=== PATIENT | male | born 1970 | race Caucasian/White ===

== ENCOUNTER 2022-09-18 11:32 | Emergency (ER) | payer BC, SELFPAY ==
--- NOTE | 2022-09-18 11:34 | ED.URI ---
HPI - URI/Sore Throat General Chief Complaint: Upper Respiratory Infection Stated Complaint: Sinus Time Seen by Provider: 09/18/22 11:49 Source: patient, RN notes reviewed and old records reviewed Mode of arrival: ambulatory Limitations: no limitations History of Present Illness HPI Narrative: 52-year-old male presents to the [facility] with complaints of sinus congestion since yesterday. Has taken Tylenol and DayQuil. Was concerned because he was exposed to strep last week. MD elicited complaint: nasal congestion Related Data Home Medications Medication Instructions Recorded Confirmed amlodipine 10 mg tablet mg 09/18/22 lisinopril 40 mg tablet mg 09/18/22 metformin 500 mg tablet mg 09/18/22 pravastatin 20 mg tablet mg 09/18/22 semaglutide 0.25 mg or 0.5 mg (2 mg subcut 09/18/22 mg/1.5 mL) subcutaneous pen injector (Ozempic) sertraline 50 mg tablet mg 09/18/22 Allergies Allergy/AdvReac Type Severity Reaction Status Date / Time No Known Allergies Allergy Verified 09/18/22 11:54 Review of Systems Review of Systems: All systems reviewed & are unremarkable except as noted in HPI and below Constitutional: Constitutional: Reports no additional constitutional complaints Eyes: Eyes: Reports no additional eye complaints ENT: Reports as per HPI, Reports nasal congestion and Denies sore throat Cardiovascular: Cardiovascular: Reports no additional cardiovascular complaints, Denies chest pain and Denies dyspnea Respiratory: Respiratory: Reports no additional respiratory complaints, Denies chest congestion, Denies cough and Denies dyspnea Gastrointestinal: Gastrointestinal: Reports no additional gastrointestinal complaints, Denies abdominal pain, Denies nausea and Denies vomiting Musculoskeletal: Musculoskeletal: Reports no additional musculoskeletal complaints Integumentary/Breasts: Skin/Breast: Reports system reviewed and no additional complaints, except as docu Neurologic: Reports system reviewed and no additional complaints, except as documented Psychiatric: Psychiatric: Reports no additional psychiatric complaints Allergic/Immunologic: Allergic/Immunologic: Reports no additional allergic/immunologic complaints PMFSH Comments At the time of my signature, I reviewed and agree with the nursing past medical, surgical, social, and family history. There is no relevant family history pertinent to the patient complaint. Exam Const: General: cooperative, healthy appearing, comfortable, no acute distress, well developed, alert and well nourished Nutritional Appearance: well nourished and obese Orientation/consciousness: patient oriented x3 Limitations: no limitations HENMT: Head: normal to inspection Ears: hearing grossly normal bilaterally and external ears normal Face/Nose/Sinus: Normal external nose present, Normal nares present, Normal nasal mucous membranes and turbinates present and normal facial exam Face and sinus: normal facial exam Mouth: Yes Normal oral and palatal mucosa present, Yes lip normal and Yes moist mucous membranes Throat: posterior oropharynx normal and uvula midline Eyes: General: appearance normal, both eyes and all related structures Alignment and Position: alignment normal Periorbital: periorbital findings normal Conjunctivae: conjunctivae normal Pupils: Equal, round and reactive pupils present EOM: EOMs intact bilaterally Neck: Neck: normal visual inspection, full ROM, no lymphadenopathy and no meningeal signs Chest: Chest palpation & inspection: normal inspection of the chest Resp: Effort & Inspection: normal respiratory effort and able to speak in complete sentences Auscultation: clear to auscultation bilaterally, no crackles, no rales, no rhonchi and no wheezes Cardio: Rate: regular rate Rhythm: regular rhythm Back/Spine/Pelvis: Cervical Spine: cervical ROM normal Thoracic/Lumbar Spine: No thoracic spinal tenderness Skin: General skin exam: normal color and no ra
[2022-09-18 11:46] VITALS: BP 179/81; PULSE 72; RESP 16; TEMP 36.1; O2SAT 99
== END 2022-09-18 12:22 | disposition home or self-care (01) ==
PROVIDERS: Emergency Provider Nurse Practitioner
DX: J06.9 Acute upper respiratory infection, unspecified (principal); E78.00 Pure hypercholesterolemia, unspecified; I10 Essential (primary) hypertension; E11.9 Type 2 diabetes mellitus without complications
CPT/HCPCS: 87081; 87880; 99203; G0463

== ENCOUNTER 2022-10-23 11:30 | Emergency (ER) | payer BC, SELFPAY ==
[2022-10-23 11:40] VITALS: BP 180/70; PULSE 73; RESP 20; TEMP 36.9; O2SAT 99
--- NOTE | 2022-10-23 12:09 | ED.URI ---
HPI - URI/Sore Throat General Chief Complaint: Upper Respiratory Infection Stated Complaint: Cough Time Seen by Provider: 10/23/22 12:09 Source: patient Mode of arrival: ambulatory Limitations: no limitations History of Present Illness HPI Narrative: Patient is a 52-year-old male that presents from with a guide for cough, congestion, runny nose, intermittent fever since the hairs September. Patient was seen here September 18 and was determined to have a virus at the time. The patient states symptoms have not improved. Took Tylenol today for fever. Related Data Home Medications Medication Instructions Recorded Confirmed amlodipine 10 mg tablet 10 mg PO DAILY 09/18/22 10/23/22 lisinopril 40 mg tablet 40 mg PO DAILY 09/18/22 10/23/22 metformin 500 mg tablet 500 mg PO DAILY 09/18/22 10/23/22 pravastatin 20 mg tablet 20 mg PO DAILY 09/18/22 10/23/22 semaglutide 0.25 mg or 0.5 mg (2 0.25 mg subcut WEEKLY 09/18/22 10/23/22 mg/1.5 mL) subcutaneous pen injector (Ozempic) sertraline 50 mg tablet 50 mg PO DAILY 09/18/22 10/23/22 Allergies Allergy/AdvReac Type Severity Reaction Status Date / Time No Known Allergies Allergy Verified 10/23/22 11:37 Review of Systems Review of Systems: All systems reviewed & are unremarkable except as noted in HPI and below Constitutional: Constitutional: Denies body ache(s), Reports fever(s), Denies malaise and Denies weakness Eyes: Eyes: Denies loss of vision ENT: Denies otalgia, Denies headache(s), Reports nasal congestion, Reports nasal discharge, Denies sinus pain and Denies sore throat Cardiovascular: Cardiovascular: Denies chest pain, Denies irregular heart rhythm and Denies dyspnea Respiratory: Respiratory: Reports cough and Denies dyspnea Gastrointestinal: Gastrointestinal: Denies abdominal pain, Denies melena, Denies hematochezia, Denies diarrhea, Denies nausea and Denies vomiting Musculoskeletal: Musculoskeletal: Denies back pain, Denies myalgias and Denies arthralgias Integumentary/Breasts: Skin/Breast: Denies pruritus and Denies rash Neurologic: Denies headache(s), Denies loss of vision and Denies weakness Psychiatric: Psychiatric: Reports no additional psychiatric complaints PMFSH Comments At time of signature, agree with nursing past medical, surgical, social and family history. There is no relevant family history pertinent to the presenting complaint. Exam Const: General: cooperative, healthy appearing, comfortable, no acute distress and well nourished Nutritional Appearance: well nourished Orientation/consciousness: patient oriented x3 Limitations: no limitations HENMT: Head: normal to inspection, normocephalic and atraumatic Ears: hearing grossly normal bilaterally, external ears normal and TM's normal bilaterally Face/Nose/Sinus: Normal external nose present, Normal nares present, Normal nasal mucous membranes and turbinates present, normal facial exam, sinuses nontender and face symmetric Face and sinus: normal facial exam, sinuses nontender and face symmetric Mouth: Yes Normal oral and palatal mucosa present, Yes lip normal and Yes moist mucous membranes Teeth and gingiva: dentition normal Throat: posterior oropharynx normal, tonsils normal and uvula midline Eyes: General: appearance normal, both eyes and all related structures Alignment and Position: alignment normal and position normal Periorbital: periorbital findings normal Eyelids: eyelids normal Pupils: Equal, round and reactive pupils present Neck: Neck: normal visual inspection, full ROM and supple Chest: Chest palpation & inspection: normal inspection of the chest and normal palpation of entire chest wall Resp: Effort & Inspection: normal respiratory effort and able to speak in complete sentences Auscultation: clear to auscultation bilaterally, no crackles, no rales, no rhonchi and no wheezes Cardio: Rate: regular rate Rhythm: regular rhythm Heart sounds: S1 normal heart sound present an
== END 2022-10-23 12:27 | disposition home or self-care (01) ==
PROVIDERS: Emergency Provider Nurse Practitioner Family
DX: J06.9 Acute upper respiratory infection, unspecified (principal)
CPT/HCPCS: 99213; G0463

== ENCOUNTER 2022-12-31 08:33 | Emergency (ER) | payer BC, SELFPAY ==
--- NOTE | ~2022-12-31 | CT_ITS ---
EXAMINATION: CT pelvis w con DATE: 12/31/2022 10:08 INDICATION: Left scrotal abscess. TECHNIQUE: Computed tomography (CT) of the pelvis was performed with 100 mL Omnipaque 350 intravenous contrast. Automated exposure control and iterative reconstruction technique were employed. The dose- length product was 1024.63 mGy-cm. COMPARISON: None FINDINGS: There are no dilated loops of bowel. There are no pathologically enlarged lymph nodes. Ther e is no free intraperitoneal fluid. There is a 2.6 x 1.3 x 2.0 cm abscess in the scrotum on the left. The abscess drains to the skin, and there is a focus of gas in the abscess. There is moderate lumbar spondylosis. IMPRESSION: 1. 2.6 x 1.3 x 2.0 cm abscess in the scrotum on the left. Reviewed, dictated and finalized at location A.
[2022-12-31 08:38] VITALS: BP 221/96; PULSE 79; RESP 20; TEMP 36.8; O2SAT 99
--- NOTE | 2022-12-31 09:04 | ED.GENADULT ---
HPI - General Adult General Chief complaint: Wound/Laceration Stated complaint: cyst in groin Time Seen by Provider: 12/31/22 08:56 Source: patient Mode of arrival: ambulatory Limitations: no limitations History of Present Illness HPI narrative: 52 years old white male drove himself to the emergency room complaining of left scrotal cyst started 3 days ago. Patient is telling me that he had numerous symptoms in the past sometimes get better on Bactrim DS and sometimes require surgery. Last time went to [facility], work-up showed necrotizing fasciitis and required surgery at [facility]. Patient denies any fever, chills, nausea, vomiting, abdominal pain or scrotal pain. Patient is diabetic. Dr. Medina came to the emergency room and manage the abscess. Patient will be discharged on clindamycin and to follow-up with his office in 7 days. Related Data Home Medications Medication Instructions Recorded Confirmed amlodipine 10 mg tablet 10 mg PO DAILY 09/18/22 10/23/22 lisinopril 40 mg tablet 40 mg PO DAILY 09/18/22 10/23/22 metformin 500 mg tablet 500 mg PO DAILY 09/18/22 10/23/22 pravastatin 20 mg tablet 20 mg PO DAILY 09/18/22 10/23/22 semaglutide 0.25 mg or 0.5 mg (2 0.25 mg subcut WEEKLY 09/18/22 10/23/22 mg/1.5 mL) subcutaneous pen injector (Ozempic) sertraline 50 mg tablet 50 mg PO DAILY 09/18/22 10/23/22 Allergies Allergy/AdvReac Type Severity Reaction Status Date / Time No Known Allergies Allergy Verified 12/31/22 08:47 Review of Systems Review of Systems: All systems reviewed & are unremarkable except as noted in HPI and below Exam Narrative: General appearance: Well-developed, well-nourished Skin: Normal color Head: Normocephalic, nontraumatic Eyes: Clear conjunctiva ENT: Oropharynx normal, ears normal, nose normal Neck: Supple, nontender Chest and respiratory: Airway patent, no respiratory distress, no accessory muscle use Heart: Regular rate/rhythm Abdomen: Soft, nontender, no organomegaly, quiet bowel sounds Vascular: Normal peripheral pulses, normal capillary refill. Musculoskeletal: Normal range of motion, nontender back Neurologic: Alert and oriented ?3, [employer] is normal as tested, no gross motor deficit : Male genitals images: 1. 5 cm x 5 cm subcutaneous induration with a hole in the middle leaking thick purulent discharge Course Consultations Consultation #1: Dr. Medina Came to the emergency room and manage the abscess. Date: 12/31/22 Time: 12:55 Vital Signs Vital signs: Vital Signs Temperature 36.8 C 12/31/22 08:38 Pulse Rate 79 12/31/22 08:38 Respiratory Rate 20 12/31/22 08:38 Blood Pressure 221/96 H 12/31/22 08:38 Pulse Oximetry 99 12/31/22 08:38 Oxygen Delivery Room Air 12/31/22 08:38 Temperature 36.8 C 12/31/22 08:38 Pulse Rate 92 12/31/22 10:58 Respiratory Rate 19 12/31/22 10:58 Blood Pressure 174/73 H 12/31/22 10:58 Pulse Oximetry 99 12/31/22 10:58 Oxygen Delivery Room Air 12/31/22 08:38 Medical Decision Making Vital Signs Vital Signs: Vital Signs Temperature 36.8 C 12/31/22 08:38 Pulse Rate 79 12/31/22 08:38 Respiratory Rate 20 12/31/22 08:38 Blood Pressure 221/96 H 12/31/22 08:38 Pulse Oximetry 99 12/31/22 08:38 Oxygen Delivery Room Air 12/31/22 08:38 Temperature 36.8 C 12/31/22 08:38 Pulse Rate 92 12/31/22 10:58 Respiratory Rate 19 12/31/22 10:58 Blood Pressure 174/73 H 12/31/22 10:58 Pulse Oximetry 99 12/31/22 10:58 Oxygen Delivery Room Air 12/31/22 08:38 Lab Data 12/31/22 09:17 12/31/22 09:17 Labs: Lab Results 12/31/22 12/31/22 Rang
[2022-12-31] MEDS: SODIUM CHLORIDE 0.9% IV 1,000 ML 999 ML IV CONT (09:25)
[2022-12-31 09:32] LABS: Basophils Percent Auto 0.4 % (0.2-1.2); Eosinophils Absolute Auto 0.1 K/mm3 (0-0.3); Hematocrit 42.9 % (42.0-52.0); Hemoglobin 14.5 g/dL (14.0-18.0); Immature Granulocyte Absolute 0.05 K/mm3 (0.00-0.031); Immature Granulocyte Percent A 0.7 % (0-0.5); Lymphocytes Absolute Auto 1.04 K/mm3 (0.9-3.2); Lymphocytes Percent Auto 14.6 % (18.3-44.2); Mean Corpuscular HGB Conc 33.8 g/dl (32-36); Mean Corpuscular Hemoglobin 32.5 pg (26-34); Mean Corpuscular Volume 96.2 fl (80-100); Mean Platelet Volume 9.2 fl (7.4-10.4); Monocytes Absolute Auto 0.6 K/mm3 (0.1-0.6); Monocytes Percent Auto 7.9 % (2.6-8.5); Neutrophils Absolute Auto 5.4 K/mm3 (1.3-6.7); Neutrophils Percent Auto 75.4 % (45.5-73.1); Platelet Count Result 265 k/mm3 (150-375); Red Blood Count 4.46 M/mm3 (4.6-6.20); Red Cell Distribution Width 12.6 % (11.5-14.5); White Blood Count 7.1 K/mm3 (4.5-10.0)
[2022-12-31 09:35] LABS: Appearance Urine Clear (Clear); Bacteria Urine None Seen /hpf; Bilirubin Urine Negative (Negative); Blood Urine Negative (Negative); Color Urine Yellow (Yellow); Glucose Urine UA 2+ mg/dL (Negative); Ketones Urine Negative (Negative); Leukocyte Esterase Ur Negative LEU/UL (Negative); Nitrate Urine Negative (Negative); Non Pathogenic Casts 0-2; Protein Urine 1+ mg/dL (Negative); RBC Urine 0-2 /hpf (0-2); Specific Grav Ur 1.014 (1.001-1.035); Squamous Epithelial Cell Urine None seen /hpf (Few); Urobilinogen Urine 0.2 mg/dL (<2.0); WBC Urine 0-5 /hpf; pH Urine 5.5 (5.0-9.0)
[2022-12-31 09:41] LABS: Prothrombin Time 13.8 Seconds (11.1-14.7)
[2022-12-31 09:42] LABS: Partial Thromboplastin Time 26.7 SECONDS (22.3-36.8)
[2022-12-31 09:44] LABS: Add Urine Microscopic? YES
[2022-12-31 09:45] LABS: Lactic Acid Reflex 1.5 mmol/L (0.7-2.0)
[2022-12-31 09:49] LABS: Alanine Aminotransferase 17 U/L (6-50); Albumin Level 4.2 g/dL (3.5-5.1); Alkaline Phosphatase 45 U/L (38-126); Anion Gap 5 mmol/L (8-16); Aspartate Amino Transferase 26 U/L (17-59); Bilirubin,Total 0.8 mg/dL (0.2-1.3); Blood Urea Nitrogen 16 mg/dL (9-20); CRP 1.6 mg/dL (<1.0); Calcium 8.6 mg/dL (8.4-10.2); Carbon Dioxide 30 mmol/L (22-30); Chloride 102 mmol/L (98-107); Estimated CRCL calculation 154 ml/min; Estimated Glomerular Filt Rate > 60; Glucose 258 mg/dL (65-110); Potassium 4.6 mmol/L (3.4-5.0); Sodium 137 mmol/L (137-145)
[2022-12-31 10:58] VITALS: BP 174/73; PULSE 92; RESP 19; O2SAT 99
[2022-12-31] MEDS: VANCOMYCIN 1,250 MG/NS 250 ML 1,250 MG/250 ML BAG 166.67 MG IVPB (11:36)
--- NOTE | 2022-12-31 12:30 | PC.NURSE ---
Dr. Medina at bedside to evaluate pt and I&D abscess.
--- NOTE | 2022-12-31 13:01 | WPDURCON ---
Assessment and Plan Assessment and plan (1) Abscess of scrotum: Code(s): N49.2 - Inflammatory disorders of scrotum Status: Acute Assessment and Plan: Discussed management options. Given that his white count is normal you would like to possibly have it drained in the emergency room. This was performed cultures were sent there was no significant abscess noted just fairly empty pocket. This was packed with iodoform. He will be discharged home with pain meds antibiotics and instructed to what dry b.i.d.. He will follow up with our nurse practitioner in 7-10 days. Procedure note is dictated separately Urology Consult Note HPI Date Seen: 12/31/22 Time Seen: 13:01 Requesting Physician: Dr. Terrazas Primary Care Provider: PHYSICIAN NOT ON STAFF Consult Narrative Reason for consult: scrotal abscess Narrative: Dru Nathan is a 52 year old male who has a history of repeated scrotal abscesses. Approximately 18 months ago he was admitted over at [place] with necrotizing fasciitis. He states that he gets these little abscess is regularly in the usual a just drain on a cells. He was a little bit concerned at this point because of what happened tumor the past and presented to the emergency room. Denied any fevers chills nausea or vomiting. White count is normal and he is afebrile. CT scan was performed which reveals about a 2 cm abscess in the left hemiscrotum which appears superficial. It has been draining. Review of Systems Review of Systems: All systems reviewed & are unremarkable except as noted in HPI and below Meds Home Medications and Allergies Home Medications Medication Instructions Recorded Confirmed Type amlodipine 10 mg tablet 10 mg PO DAILY 09/18/22 10/23/22 History lisinopril 40 mg tablet 40 mg PO DAILY 09/18/22 10/23/22 History metformin 500 mg tablet 500 mg PO DAILY 09/18/22 10/23/22 History pravastatin 20 mg tablet 20 mg PO DAILY 09/18/22 10/23/22 History semaglutide 0.25 mg or 0.5 mg (2 0.25 mg subcut WEEKLY 09/18/22 10/23/22 History mg/1.5 mL) subcutaneous pen injector (Ozempic) sertraline 50 mg tablet 50 mg PO DAILY 09/18/22 10/23/22 History amoxicillin 875 mg-potassium 1 tablet PO Q12H 10 days #20 tabs 10/23/22 Rx clavulanate 125 mg tablet prednisone 20 mg tablet 40 mg PO DAILY 5 days #10 tabs 10/23/22 Rx clindamycin HCl 300 mg capsule 300 mg PO Q6H #40 caps 12/31/22 Rx Allergies Allergy/AdvReac Type Severity Reaction Status Date / Time No Known Allergies Allergy Verified 12/31/22 08:47 Vital Signs Vital Signs - 24 hr 12/31/22 08:38 12/31/22 10:58 Temperature 36.8 C Pulse Rate 79 92 Respiratory Rate 20 19 Blood Pressure 221/96 H 174/73 H Pulse Oximetry 99 99 Oxygen Delivery Room Air Exam Const: General: cooperative, healthy appearing, comfortable and no acute distress Chest: Chest palpation & inspection: normal inspection of the chest Resp: Effort & Inspection: normal respiratory effort Cardio: Rate: regular rate Rhythm: regular rhythm : Penis: Yes normal penis Meatus: meatus normal Scrotum: other ( Fluctuant area left hemiscrotum with induration around it measuring 2-3 c) Testes: Testes normal Results Labs 12/31/22 09:17 12/31/22 09:17 Labs: Short CBC 12/31/22 Range/Units 09:17 WBC 7.1 (4.5-10.0) K/mm3 Hgb 14.5 (14.0-18.0) g/dL Hct 42.9 (42.0-52.0) % Plt Count 265 (150-375) k/mm3 BMP 12/31/22 09:17 Sodium 137 Potassium 4.6 Chloride 102 Carbon Dioxide 30 BUN 16 Creatinine 0.60 L Glucose 258 H Calcium 8.6 Liver Function 12/31/22 Range/Units 09:17 Total Bilirubin 0.8 (0.2-1.3) mg/dL AST 26 (17-59) U/L ALT 17 (6-50) U/L Alkaline Phosphatase 45 (38-126) U/L Albumin 4.2 (3.5-5.1) g/dL Urine 12/31/22 Range/Units 09:18 Urine Color Yellow (Yellow) Urine Appearance Clear (Clear) Urine pH 5.5 (5.0-9.0) Ur Spe
--- NOTE | 2022-12-31 13:06 | W.PM.PROC2 ---
Procedure Note - Detailed Date of Procedure 12/31/22 Pre-op Diagnosis scrotal abscess Post-op Diagnosis Same Procedure Performed I&D of scrotal abscess at bedside Surgeon Daniel Medina MD Anesthesia Local ( 2% lidocaine) Findings no significant purulence as it had drained. There is a proximally 1/2 cm pocket where the purulence had resided Description of Procedure patient is prepped and draped in a fairly sterile fashion at the bedside. 2% lidocaine was injected approximately 10 cc circumferentially around the area in question. An incision was made in the midline. There was no real significant purulence but we did place a culturette and do an aerobic and anaerobic cultures. There was no evidence of any significant carotid tissue present. Copiously irrigated this pocket. However form gauze was then used to pack the area. Four by 4s an ABD were placed. Estimated Blood Loss 5 Urine Output 200 Drains No Packing Yes Pathology Yes ( Aerobic and anaerobic cultures) Complications No immediate complications Condition Stable Disposition Same day
[2022-12-31 13:38] VITALS: BP 146/73; PULSE 75; RESP 16; O2SAT 98
== END 2022-12-31 13:39 | disposition home or self-care (01) ==
PROVIDERS: Emergency Provider Emergency Medicine
DX: N49.2 Inflammatory disorders of scrotum (principal); E11.9 Type 2 diabetes mellitus without complications; Z79.85 Long-term (current) use of injectable non-insulin antidiabetic drugs; Z79.84 Long term (current) use of oral hypoglycemic drugs
CPT/HCPCS: 36415; 55100; 72193; 80053; 81001; 83605; 85025; 85610; 85730; 86140; 87040; 87070; 87205; 96361; 96365; 96366; 99284; J3370; J7030; Q9967

== ENCOUNTER 2024-01-20 15:06 | Emergency (ER) | payer BC, SELFPAY ==
[2024-01-20 15:24] VITALS: BP 180/75; PULSE 88; RESP 20; TEMP 38.1; O2SAT 100
--- NOTE | 2024-01-20 16:12 | ED.URI ---
HPI - URI/Sore Throat General Chief Complaint: Upper Respiratory Infection Stated Complaint: achey tired/sore throat Time Seen by Provider: 01/20/24 16:10 Source: patient, EMS and RN notes reviewed Mode of arrival: ambulatory Limitations: no limitations History of Present Illness HPI Narrative: 53 year old male presents to [facility] with complaints of fever, body ache, fatigue, and sore throat with painful swallowing since yesterday morning. Patient reports that he has been taking Tylenol for his fevers and his discomfort.Patient reports that last dose of Tylenol was at 0800 this morning temp is 38.1C at time of triage. MD elicited complaint: fever, sore throat and other (body aches, fatigue, and nausea) Onset (ago): day(s) (day 2 of symptoms) Severity: moderate Able to tolerate fluids by mouth: Yes Exacerbating factors: swallowing Treatments prior to arrival: acetaminophen Related Data Home Medications Medication Instructions Recorded Confirmed amlodipine 10 mg tablet 10 mg PO DAILY 09/18/22 10/23/22 lisinopril 40 mg tablet 40 mg PO DAILY 09/18/22 10/23/22 metformin 500 mg tablet 500 mg PO DAILY 09/18/22 10/23/22 pravastatin 20 mg tablet 20 mg PO DAILY 09/18/22 10/23/22 semaglutide 0.25 mg or 0.5 mg (2 0.25 mg subcut WEEKLY 09/18/22 10/23/22 mg/1.5 mL) subcutaneous pen injector (Ozempic) sertraline 50 mg tablet 50 mg PO DAILY 09/18/22 10/23/22 Allergies Allergy/AdvReac Type Severity Reaction Status Date / Time No Known Allergies Allergy Verified 01/20/24 15:46 Review of Systems Review of Systems: CONSTITUTIONAL:Reports malaise, chills, sweats, or fever. EYES: Denies visual changes, redness, or discharge. ENT: Reports rhinorrhea, congestion, no sinus pain, no otalgia and positive for sore throat. CARDIOVASCULAR: Denies chest pain, palpitations, or edema. RESPIRATORY: Reports no cough.? Denies dyspnea. GASTROINTESTINAL: Denies abdominal pain, positive for nausea,no vomiting,no diarrhea SKIN: Denies rash or itching. MUSCULOSKELETAL: Denies myalgia. NEUROLOGIC: Denies headache. All systems reviewed & are unremarkable except as noted in HPI and below PMFSH Past Medical History Medical History (Updated 01/22/24 @ 16:11 by Corina Macias NP) Diabetes Gangrene Hyperlipidemia Hypertension Social History Social History (Updated 01/22/24 @ 16:10 by Corina Macias NP) Alcohol intake: current Alcohol use details: rare social Substance use type: does not use Living arrangements: with family Gender identity (if verbalized by the patient): Male Comments At time of signature, agree with nursing past medical, surgical, social and family history. There is no relevant family history pertinent to the presenting complaint Exam Narrative: GENERAL: Well-appearing, well-nourished, and in no acute distress. HEAD: Normocephalic EYES: PERRLA, conjunctivae clear ENT: Nares clear, turbinates edematous and erythematous, clear discharge. Mucous membranes moist. TM pearly grider with dull light reflex bilaterally; no tragal tenderness. Oropharynx erythematous without lesions. Tonsils red and enlarged and with exudates, no drooling, no hoarseness, no trismus, uvula midline.some post nasal drainage NECK: Supple. lymphadenopathy CHEST: Clear to auscultation, breath sounds equal. No wheezing, rhonchi, rales, or stridor. No respiratory distress, speaks in full sentences.SAO2 100% on room air HEART: Regular rate and rhythm. No murmur heard. SKIN: Warm, dry, no rash. NEURO: Alert and oriented x3. PSYCH: Normal mood and affect Course Course Emergency Course: Patient is aware of diagnosis, understands and agrees to treatment plan.? Anticipatory guidance given.? Patient agrees to follow-up as directed and is aware of reasons to seek care at the emergency department. Portions of this record may have been created with voice recognition software Level of Care: [facility] V
== END 2024-01-20 16:30 | disposition home or self-care (01) ==
PROVIDERS: Emergency Provider Registered Nurse; PCP Internal Medicine Endocrinology, Diabetes & Metabolism
DX: J03.90 Acute tonsillitis, unspecified (principal); Z20.822 Contact with and (suspected) exposure to COVID-19; E11.9 Type 2 diabetes mellitus without complications; E78.5 Hyperlipidemia, unspecified; I10 Essential (primary) hypertension
CPT/HCPCS: 87081; 87426; 87804; 87880; 99213; G0463

== ENCOUNTER 2024-10-31 06:31 | Outpatient (CLI) | payer BC, SELFPAY ==
--- NOTE | ~2024-10-31 | CT_ITS ---
EXAMINATION: CT abdomen wo con DATE: 10/31/2024 06:52 INDICATION: Adrenal gland disorder. TECHNIQUE: Computed tomography (CT) of the abdomen and pelvis was performed without intravenous contr ast. The dose-length product was 1085.79 mGy-cm. Automated exposure control and iterative reconstruct ion technique were employed. COMPARISON: None. FINDINGS: There is mild thickening of the left adrenal gland, likely hyperplasia. Lung bases are unre markable. No significant pleural or pericardial effusion. There is focal increased density in the sub cutaneous tissues of the anterior abdominal wall, image 33, measuring 2.3 cm extending to the skin parker rface. There is mild surrounding fatty infiltration. This finding is nonspecific. Recommend clinical correlation. It is located overlying the left lower chest wall close to midline. The liver, spleen, right adrenal gland and left kidney are unremarkable. There is a 3.7 x 3.5 cm exop hytic right renal mass containing coarse calcifications internally. Gallbladder is present. Nonobstru ctive bowel gas pattern. There is mild atherosclerosis of the aorta. Left kidney within normal limits . Small accessory splenule. Moderate lower thoracic and lumbar spondylosis. IMPRESSION: 1. Mild thickening left adrenal gland, likely benign hyperplasia. No discrete mass. 2: Focal abnormal soft tissue left lower anterior chest involving the subcutaneous tissues with overl elliot skin thickening. This soft tissue measures 2.3 cm. Recommend clinical correlation. Consideration s include postsurgical, infectious and neoplastic changes. 3: Hypodense 3.7 cm exophytic right renal mass with internal coarse calcifications. Correlation with CT or MRI abdomen without and with contrast recommended. Reviewed, dictated and finalized at location A. IMPRESSION: 1. Mild thickening left adrenal gland, likely benign hyperplasia. No discrete m ass. 2: Focal abnormal soft tissue left lower anterior chest involving the subcutane ous tissues with overlying skin thickening. This soft tissue measures 2.3 cm. R ecommend clinical correlation. Considerations include postsurgical, infectious and neoplastic changes. 3: Hypodense 3.7 cm exophytic right renal mass with internal coarse calcificati ons. Correlation with CT or MRI abdomen without and with contrast recommended.
--- OUTSIDE RECORDS SUMMARY | 2024-10-31 06:36 | XMS_ITS | Continuity of Care Document ---
Author Organization [facility] Address [address] [place] [address] [place], [place] [address] [place] [address] Phone Care Team Providers Care Map Clerk Name Role Phone Chris Davis MD Unavailable Unavailable Procedures Procedure Date EXT ECG>48HR<7D RECORDING EXT ECG>48HR<7D REV&INTERPJ Advance Directives Directive Yes / No Effective Date File Name No Information Encounters Encounter Description Practice Location Reason(s) For Visit Diagnoses Date Provider Providers Copied on Encounter [facility], [address] [place], [place] [address], [place], [place], [id number], tel:[phone] [facility] No Information Ryan Perez. [address] [place] [address], [facility], [place], [place], [id number], . tel:[phone] Referring Provider: Chris Davis, [address] [place] [address] [address], [place], [address]. tel:[phone] [facility], [address] [place], [place] [address], [place], [id number], tel:[phone] [facility] Palpitations Rossy Landaverde. [address] [place] [address], [address], [place], [place], [id number], . tel:[phone] Referring Provider: Joni Cardona, [address] [place] [address], [place], [address]. tel:[phone] Family History Family Member Type Diagnosis Age At Onset No Information Payers Payer name Insurance type Covered green party ID Authormalvin hunter(s) [facility] PPO [id number] Social History Type Description Quantity Date Captured Comments Alcohol Use Details Unknown Caffeine Use Details Unknown Tobacco Use Status No Information Smoking Status No Information Sex Male Chief Complaint And Reason For Visit No Information Reason For Referral Reason For Referral No Information History Of Present Illness Encounter Date Complaint History Of Prese nt Illness No Information Functional Status Date Functional Assessmen t No Information Instructions Date Instruction Additional Infor mation No Information Assessments Type Assessment Date No Information Patient Care Teams Name Effective Dates (start - stop) Status Members No Information
--- OUTSIDE RECORDS SUMMARY | 2024-10-31 06:37 | XMS_ITS ---
Author Organization [facility] Address [address] [address] Care Team Providers Care Pest Locator Name Role Phone Fannie Neal Primary Care Provider REASON FOR VISIT lab f/u tereso Encounters Encounter Location Date Provider Diagnosis [facility], [facility] - Fannie Neal [address] [place] [address] 10/17/2024 Fannie Neal Plan Of Treatment No Information Progress Notes * TAMARADruDOB: [birth year] (54 yo M)Acc No.[id number]:10/17/2024 Progress Notes Patient: Dru CALERO Provider: Johnna Neal MD :1970 A ge:54 Y S ex:Male Date:10/17/2024 Address:[address] [place] [address] Subjective: * Chief Complaints: * 1 . Lab f/u tereso. * Medical History: Objective: * Vitals: Assessment: Plan: * Treatment: * Billing Information: * Visit Code: * Procedure Codes: * Electronic signature of Jose E Neal MD on 10/31/2024 at 06:36 AM CDT Sign off status: Pending * Provider: Johnna Neal MD Date: 10/17/2024 Generated for Reggie burt/Panda/eTransmitting on: 10/31/2024 06:36 AM CDT
--- OUTSIDE RECORDS SUMMARY | 2024-10-31 06:37 | XMS_ITS | Clinical Summary ---
Author Organization [facility] Address [address] [place] [address] Care Team Providers Care Sheet Cutter Name Role Phone Armando Nieto MD Primary Care Provider Source Comments [facility],non-owned Affiliates and Associated Physician Practices is amultiple site organization consisting of ambulatory clinics and hospital sitesin [place], [place], [place] and [place]. This disclosure is being madepursuant to the Care Everywhere program and may not contain all information available regarding this patient. Last updated 18.[facility] Social History Tobacco Use Types Packs/Day Years Used Date Smoking Tobacco: Never Assessed Sex and Gender Information Value Date Recorded Sex Assigned at Not on file Gender Identity Not on file Sexual Orientation Not on file Plan of Treatment Health Maintenance Due Date Last Done Comments COLOGUARD (AGES 45-75) - COL ON CA SCREENING 1970 COLON MONITORING 1968 COLONOSCOPY - COLON CA SCREENING 1968 CT COLONOGRAPHY - COLON CA SCREENING 1970 Colorectal Cancer Screening 1970 FIT - COLON CA SCREENING 1968 FLEX SIG - COLON CA SCREENING 1968 LIPID TESTING 1968 HIV SCREENING 1983 HEPATITIS C SCREENING 05/05/1986 DTAP/TDAP/TD VACCINES (1 - Tdap) 1987 HEPATITIS B VACCINE (1 of 3 - 19+ 3-dose series) 1987 PNEUMOCOCCAL VACCINE 50+ (1 of 1 - PCV) 2018 ZOSTER VACCINE (1 of 2) 2018 COVID-19 VACCINE ( - 2023-2 5 season) 2024 INFLUENZA VACCINE (#1) 2024 DEPRESSION SCREENING 08/06/2024 HIB VACCINE Aged Out No longer eligi ble based on patient's age to complete this topic HPV VACCINE Aged Out No longer eligi ble based on patient's age to complete this topic MENINGOCOCCAL (Group B) VACC INE SHARED DECISION-MAKING Aged Out No longer eligibl e based on patient's age to complete this topic MENINGOCOCCAL GROUPS A/C/Y/W VACCINE Aged Out No longer eligible b ased on patient's age to complete this topic PNEUMOCOCCAL VACCINE Aged Out No long er eligible based on patient's age to complete this topic Care Teams Sheet Cutter Relationship Specialty Start Date End Date Armando Nieto MD [address] [place] [address] PCP - General 12/10/12
--- OUTSIDE RECORDS SUMMARY | 2024-10-31 06:37 | XMS_ITS ---
Author Organization [facility] Address [address] [address] Care Team Providers Care Nutrition Helper Name Role Phone Fannie Neal Primary Care Provider [phone] REASON FOR VISIT Refills Medications Medication SIG (Take, Route, Frequency, Duration) Notes Start Date End Date Status Paxlovid (300/100) 20 x 150 MG & 10 x 100MG 3 tablets Orally Twice a day for 5 days 08/14/2024 Active Encounters Encounter Location Date Provider Diagnosis [facility], [facility] - Fannie Neal [address] [place] [address] 08/14/2024 Fannie Neal COVID-19 U07.1 Assessments Encounter Date Diagnosis (ICD Code) Assessment Notes Treatment Notes Treatment Clinical Notes Section Notes 08/14/2024 COVID-19 (ICD-10 - U07.1) Plan Of Treatment Medication Medication Name Sig Start Date Stop Date Notes Paxlovid (300/100) 20 x 150 MG & 10 x 100MG 3 tablets Orally Twice a day for 5 days 08/14/2024 Progress Notes * Dru MCDONALDDOB: [birth year] (54 yo M)Acc No.[id number]:08/14/2024 Patient: Dru CALERO :1970 A ge:54 Y S ex:Male Address:[address] [place] [address] * Refills Start Paxlovid (300/100) Tablet Therapy Pack, 20 x 150 MG & 10 x 100MG, Orally, 30, 3 tablets, Twice a day, 5 days, Refills=0 Subjective: * Chief Complaints: * R efills * Medical History: * Surgical History: * Hospitalization/Major Diagno stic Procedure: * Medications: Objective: * Vitals: * Physical Examination: Assessment: * Assessment: 1. C OVID-19 - U07.1 (Primary) Plan: * Treatment: * Procedure Codes: * true * Date: Generated for Reggie burt/Panda/Capri on: 0 10/31/2024 06:37 AM CDT
--- OUTSIDE RECORDS SUMMARY | 2024-10-31 06:37 | XMS_ITS | Encounter Summary ---
Author Organization [facility] Address [address] [place] [address] Care Team Providers Care School Commissioner Name Role Phone Armando Nieto MD Primary Care Provider [phone] Encounter Details Date Type Department Care Team (Late st Contact Info) Description 10/16/2019 Lab Requisition [facility] [address] [place] [id number] Jalen Stephen MD [address] [place] [address] Social History Tobacco Use Types Packs/Day Years Used Date Smoking Tobacco: Never Assessed Sex and Gender Information Value Date Recorded Sex Assigned at Not on file Gender Identity Not on file Sexual Orientation Not on file documented as of this encounter Plan of Treatment Not on file documented as of this encounter Procedures Procedure Name Priority Date/Time Associated Diagnosis Comments DERMATOPATHOLOGY Routine 10/14/2019 12:0 0 AM CDT documented in this encounter Results * DERMATOPATHOLOGY (10/14/2019 12:00 AM CDT) Case Report Dermatopathology Report Case: [id number] Authorizing Provider: Jalen Stephen MD Collected: 10/14/2019 12:00 AM Ordering Location: [facility] Received: 10/16/2019 09:10 AM Pathologist: Johnna Murray MD Specimen: Skin, right scalp 0 12:47 PM CDT DERMATOPATHOLOGY LABORATORY Final Diagnosis Specimen A. SKIN, right scalp: HYPERPLASTIC (HYPERTROPHIC) ACTINIC KERATOSIS (L57.0) 0 12:47 PM CDT DERMATOPATHOLOGY LABORATORY Clinical History Ak vs SCCA. Path# [id number] 0 12:47 PM CDT DERMATOPATHOLOGY LABORATORY Gross Description Specimen A: Received is one formalin filled container labeled with the patient's name and designated right scalp. The specimen consists of a shave biopsy measuring 60w48x8 mm, bisected. Jar 0. 0 12:47 PM CDT DERMATOPATHOLOGY LABORATORY Microscopic Description Specimen A. SKIN, right scalp: There is hyperkeratosis alternating with parakeratosis. There is epidermal hyperplasia with disorderly maturation of keratinocytes with nuclear pleomorphism confined to the lower half of the epidermis. 0 12:47 PM CDT DERMATOPATHOLOGY LABORATORY Disclaimer An external and internal positive and negative controls are appropriate for the histochemical, immunohistochemical and immunofluorescence stain(s) in this case (if any), except where stated explicitly. The performance characteristics of the stain(s) cited in this report were developed and its performance characteristic determined by the Dermatopathology Laboratory at [facility], directed by Dr. Gil Murray. These tests need not be, and therefore are not, approved by the [place] Food and Drug Administration. The tests are used for clinical purposes. Billing Codes Specimen Charges Stain Charges 69729 1 0 12:47 PM CDT DERMATOPATHOLOGY LABORATORY Embedded Images 0 12:47 PM CDT DERMATOPATHOLOGY LABORATORY Pathology/Cytolog y TISSUE SPECIMEN FROM SKIN / Unknown 10/14/2019 10/16/2019 9:10 AM CDT Jalen Stephen MD LAB - PATHOLOGY/CYTO LOGY ORDERABLES DERMATOPATHOLOGY LABORATORY [facility] - Department of Dermatology [address] [place] [address], [address] [place] [address], [facility] [phone] documented in this encounter Visit Diagnoses Not on filedocumented in this encounter Care Teams School Commissioner Relationship Specialty Start Date End Date Armando Nieto MD [address] [place] [address] PCP - General 12/10/12 documented as of this encounter
--- OUTSIDE RECORDS SUMMARY | 2024-10-31 06:37 | XMS_ITS ---
Author Organization [employer] [facility] Address [address] [address] Care Team Providers Care Filling And Stapling Machine Operator Name Role Phone Fannie Neal Primary Care Provider REASON FOR VISIT 4 month f/u tereso Encounters Encounter Location Date Provider Diagnosis [facility] - Fannie Neal [address] [place] [address] 08/15/2024 Fannie Neal Plan Of Treatment No Information Progress Notes * TAMARADruDOB: [birth year] (54 yo M)Acc No.[id number]:08/15/2024 Progress Notes Patient: Dru CALERO Provider: Johnna Neal MD :1970 A ge:54 Y S ex:Male Date:08/15/2024 Address:[address] [place] [address] Subjective: * Chief Complaints: * 1 . 4 month f/u tereso. * Medical History: Objective: * Vitals: Assessment: Plan: * Treatment: * Billing Information: * Visit Code: * Procedure Codes: * Electronic signature of Jose E Neal MD on 10/31/2024 at 06:37 AM CDT Sign off status: Pending * Provider: Johnna Neal MD Date: 0 08/15/2024 Generated for Reggie ng/Fatanner/eTransmitting on: 0 10/31/2024 06:37 AM CDT
--- OUTSIDE RECORDS SUMMARY | 2024-10-31 06:37 | XMS_ITS | Clinical Summary ---
Author Organization [facility] Address [address] [place] [address] Care Team Providers Care Coconut Candy Maker Name Role Phone Sin Rosa MD Primary Care Provider + Allergies Active Allergy Reactions Criticality Noted Date Comments Adhesive Rash Medium 10/05/2021 Medications amLODIPine (NORVASC) 5 mg tabletIndicatio ns:hypertension Take 10 mg by mouth daily 0 9 Active glipiZIDE (GLUCOTROL) 5 mg tablet 0 9 Active lisinopril (PRINIVIL,ZESTR IL) 40 mg tabletIndicatio ns:hypertension Take 40 mg by mouth daily 0 9 Active pravastatin (PRAVACHOL) 20 mg tablet 0 9 Active sertraline (ZOLOFT) 50 mg tabletIndicatio ns:depression Take 50 mg by mouth daily 0 9 Active naproxen (NAPROSYN) 500 mg tablet Take 1 tablet (500 mg total) by mouth 2 (two) times a day with meals 60 tablet 2 9 Active Additional Information Patient not taking.Reported on 11/02/2021 semaglutide (OZEMPIC) 0.25 mg or 0.5 mg(2 mg/1.5 mL) pen injector injection Inject 0.25 mg every 7 days for 4 weeks, then increase to 0.5 mg every 7 days. 1.5 mL 2 Active oxyCODONE (ROXICODONE) 5 mg immediate release tabletIndicatio ns:Pain Take 1 tablet (5 mg total) by mouth every 4 (four) hours as needed for pain 20 tablet 2 Active Additional Information Patient not taking.Reported on 11/02/2021 acetaminophen (TYLENOL) 325 mg tabletIndicatio ns:Fever,Pain Take 2 tablets (650 mg total) by mouth every 4 (four) hours as needed for pain 30 tablet 2 Active polyethylene glycol (MIRALAX) 17 gram packetIndicatio ns:constipation Take 1 packet (17 g total) by mouth daily 15 packet 2 Active Additional Information Patient not taking.Reported on 11/02/2021 MULTIVITAMIN ORALIndications :Vitamin deficiency Take 1 tablet by mouth daily. Indications: Vitamin deficiency Active ibuprofen (ADVIL,MOTRIN) 200 mg tab/capIndicati ons:Pain Take 200 mg by mouth every 4 (four) hours as needed for pain. Take 1 tab every 4-6 hours as needed for pain Indications: pain 2 Active metFORMIN (GLUCOPHAGE) 500 mg tabletIndicatio ns:type 2 diabetes mellitus Take 1,000 mg by mouth 2 (two) times a day with meals. Indications: type 2 diabetes mellitus Active Active Problems Problem Noted Date Diagnosed Date Nausea & vomiting 09/15/2021 Assessment & Plan (09/17/2021 12:33 PM TECHNICAL ILLUSTRATOR): - 09/14 ongoing symptom from ICU transfer, KUB ordered, oral bowel reg and dulcolax suppository ordered - 09/15 persistent intermittent indigestion and nausea, tums, ekg and trop ordered, +BM x2 - 09/16 indigestion resolved, intermittent nausea suspect r/t narcotics - 09/17 resolved, tolerating diet COVID-19 09/14/2021 Assessment & Plan (09/18/2021 12:33 PM TECHNICAL ILLUSTRATOR): - positive on 08/12 with at-home test, currently asymptomatic but considered positive here - 09/11 +covid swab inpatient - 09/17 remains asymptomatic --- complete isolation as recommended by the CDC, f/u with PCP Sebaceous cyst 09/14/2021 Assessment & Plan (09/18/2021 12:30 PM TECHNICAL ILLUSTRATOR): 09/12 OR: excision of left chest wall cyst 09/15: local wound care - f/u [facility] 10d Type 2 diabetes mellitus 09/14/2021 Assessment & Plan (09/18/2021 12:33 PM TECHNICAL ILLUSTRATOR): - A1c 09/12: 7.8 - 09/14 BG 184-219 - lantus + SSI - goal BG <180 - 09/15 endo consulted for management - johnson check for GLP1 complete - Endocrine discharge recommendations --- metformin 1000mg BID --- glipizide 5mg daily --- ozempic 0.25mg sq weekly --- f/u with established software developer mid level 2w --- diabetes education provided to patient by RN and FLOOR ATTENDANT prior to discharge, patient reports feeling comfortable managing Ozempic administration Septic shock 09/14/2021 Assessment & Plan (09/14/2021 11:47 AM TECHNICAL ILLUSTRATOR): - 09/12 perioperative hypotension, neosynephrine --- weaned, resolved HTN (hypertension) 09/14/2021 Assessment & Plan (09/17/2021 12:33 PM TECHNICAL ILLUSTRATOR): Home med: norvasc, lisinopril --- held inpatient, resume as appropriate - 09/15 resumed - 09/17 HDS Anxiety and depression 09/14/2021 Assessment & Plan (09/15/2021 10:36 AM TECHNICAL ILLUSTRATOR): Home med: zoloft --- continued - 09/15: 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 Overview (09/11/2021): Added automatically from request for surgery [id number] Assessment & Plan (09/18/2021 12:37 PM TECHNICAL ILLUSTRATOR): - OR 09/12: R groin (undescended testes), scrotum, and perineal debridement, packed with Dakins --- urology consulted for recon recs - OR 09/13: perineal/scrotal debridement with wound vac placement - RTOR 09/16 - appreciate ongoing Uro recs - cultures --- 09/11 blood cx: negative --- 09/12 wound: mixed organisms - 09/15 stop vanc & flagyl --- WV taken down due to soiling from BM, WTD placed - 09/16 OR: wound closed over emy, abx stopped - 09/17 shower, discharge when pain controlled and diet tolerated - 09/18 emy removed given difficulty visualizing despite suture and high likelihood of retention --- do not pack open area, allow fluid to drain, change gauze pads q4h --- f/u [facility] outpatient 10d for suture removal --- home health for wound care/evaluation placed, case management aware, referrals made - antibiotics --- rocephin 09/11 --- clinda 09/11 --- cefe --- flagyl --- vanc Osteoarthritis of left ankle and foot 03/12/2019 Tendonitis of peroneus brevis tendon, right 02/2019 Immunizations Immunization Administration Dates Next Due Influenza, Quadrivalent, Spl it, Preservative Free, Intramuscular 06/18/2017 Surgical History Surgery Date Site/Laterality Comments HERNIA REPAIR CYST REMOVAL INCISION AND DRAINAGE 09/11/2021 Medical History Medical History Date Comments Hypertension Motion sickness Childhood asthma Type 2 diabetes mellitus (HCC) Family History Medical History Relation Name Comments Cancer Other Diabetes Other Hypertension Other Anesthesia problems Neg Hx Relation Name Status Comments Other Social History Tobacco Use Types Packs/Day Years Used Date Smoking Tobacco: Never Smokeless Tobacco: Never Alcohol Use Standard Drinks/Week Comments Yes 0 (1 standard drink = 0.6 oz pur e alcohol) Sex and Gender Information Value Date Recorded Sex Assigned at Not on file Legal Sex Male 2:01 PM TECHNICAL ILLUSTRATOR Gender Identity Not on file Sexual Orientation Not on file Obstetrics History Last Filed Vital Signs Vital Sign Reading Time Taken Comments Blood Pressure 139/85 11/10/2021 10:08 AM CDT Pulse 78 11/10/2021 10:08 AM CDT Temperature 36.7 C (98.1 F) 11/10/2021 10:08 AM CDT Respiratory Rate 20 11/10/2021 10:0 8 AM CDT Oxygen Saturation 98% 11/10/2021 10: 08 AM CDT Inhaled Oxygen Concentration - - Weight 117.8 kg (259 lb 12.8 oz) 2021 12:56 PM TECHNICAL ILLUSTRATOR Height 180.3 cm (5' 11 ) 09/28/2021 12: 56 PM TECHNICAL ILLUSTRATOR Body Mass Index 36.23 09/28/2021 12:56 PM TECHNICAL ILLUSTRATOR Plan of Treatment Health Maintenance Due Date Last Done Comments Albumin Creatinine Ratio, Urine 1968 Colon Cancer Screening-Colonoscopy 1968 Depression Screening 1968 Hepatitis C Screening 1968 Prostate Cancer Screening-PSA 1968 Dilated Eye Exam 1968 Foot Exam 1968 Hepatitis B Screening 1986 Regular Well Visit/Exam 18-64 1986 Pneumococcal vaccine <65 (1 of 2 - PCV) 1987 Zoster Vaccine (1 of 2) 2018 Hemoglobin A1C 03/12/2022 09/12/2021, 06/18/2017 Lipid Panel 09/12/2022 09/12/2021, 06/18/2017 eGFR 09/17/2022 09/17/2021, 09/06, 09/15/2021, Additional history exists Covid-19 Vaccine (2023-2 5 season) 2024 05/21/2021, 10/28/2020, 10/07/2020 Influenza Vaccine (#1) 2024 06/18/2017 DTaP/Tdap/Td Vaccine (2 - Td or Tdap) 07/15/2031 07/15/2021 Procedures Procedure Name Priority Date/Time Associated Diagnosis Comments EGFR Routine 09/17/2021 10:11 PM TECHNICAL ILLUSTRATOR HEMOGLOBIN A1C Timed 09/12/2021 2:39 AM TECHNICAL ILLUSTRATOR LIPID PANEL Timed 09/12/2021 2:39 AM TECHNICAL ILLUSTRATOR from Last 3 Months or Most Recently Relevant to Health Maintenance Results * eGFR (09/17/2021 10:11 PM TECHNICAL ILLUSTRATOR) eGFR >90 90 - 130 mL/min/1. 73 m2 [facility] Comment: Interpretive Data Reference Interval Normal >/= 90 mL/min/1.73m2 Mildly decreased* 60 - 89 mL/min/1.73m2 Mildly to moderately decreased 45 - 59 mL/min/1.73m2 Moderately to severely decreased 30 - 44 mL/min/1.73m2 Severely decreased 15 - 29 mL/min/1.73m2 Kidney Failure < 15 mL/min/1.73m2 *Relative to young adult level Estimated glomerular filtration rate is determined by the 2020 CKD-EPI equation recommended by the National Kidney Foundation (A Unifying Approach to GFR Estimation: Recommendations of the NKF-ASK Task Force on Reassessing the Inclusion of Race in Diagnosing Kidney Disease, JASN 2020). The CKD-EPI equation should not be used for patients with unstable renal function and has not been validated in children and those over 70. Current interpretive data was last reviewed 2021. Blood 09/17/2021 10:1 1 PM TECHNICAL ILLUSTRATOR 09/17/2021 10:47 PM TECHNICAL ILLUSTRATOR To Whitt DO LAB BLOOD ORDERABLES Fi nal Result Performing Organization Address [facility] Co de Phone Number [facility] Department [place] [address] * (ABNORMAL) Hemoglobin A1c (09/12/2021 2:39 AM TECHNICAL ILLUSTRATOR) Hgb A1C 7.8(H) 4.0 - 5.6 % [facility] Estimated Average Glucose 177 mg/dL [facility] Comment: The ADA recommends reporting an estimated Average Glucose (eAG) with all Hemoglobin A1c results using the equation derived from a study of 507 normal and diabetic adults. Minority populations were underrepresented and children were not included. (Diabetes Care 2020; 43(S1): S66-S76). The eAG is not equivalent to a fasting glucose. Blood 09/12/2021 2:39 AM TECHNICAL ILLUSTRATOR 09/12/2021 3:02 AM TECHNICAL ILLUSTRATOR us Jessica Davidson MD LAB BLOOD ORDERABLES Final Resul t Performing Organization Address City/[facility]/ZIP Co de Phone Number [facility] Department [place] [address] * (ABNORMAL) Lipid panel (09/12/2021 2:39 AM TECHNICAL ILLUSTRATOR) Cholesterol 103 30 - 199 mg/dL [facility] Comment: Interpretive Data Ages < or = 19 years Acceptable: <170 mg/dL Borderline high: 170-199 mg/dL High: >or= 200 mg/dL Ages > or = 20 years Desirable: <200 mg/dL Borderline high: 200-239 mg/dL High: >or= 240 mg/dL Literature References: 1. Expert Panel on Integrated Guidelines for Cardiovascular Health and Risk Reduction in Children and Adolescents. Pediatrics 2011;128:S213 2. NCEP Expert Panel. Circulation 2004;110:227 Current Interpretive Data was last revised on 2018. Triglycerides 72 <=149 mg/dL [facility] Comment: Hemolyzed; result may be falsely elevated Interpretive Data Ages < or = 9 years Acceptable: <75 mg/dL Borderline high: 75-99 mg/dL High: >or= 100 mg/dL Ages 10 to 20 years Acceptable: <90 mg/dL Borderline high: 90-129 mg/dL High: >or= 130 mg/dL Ages > or = 20 years Desirable: <150 mg/dL Borderline high: 150-199 mg/dL High: 200-499 mg/dL Very high: >or= 499 mg/dL Literature References: 1. Expert Panel on Integrated Guidelines for Cardiovascular Health and Risk Reduction in Children and Adolescents. Pediatrics 2011;128:S213 2. NCEP Expert Panel. Circulation 2004;110:227 Current Interpretive Data was last revised on 2018. HDL 33(L) >=40 mg/dL [facility] Comment: Interpretive Data Ages < or = 19 years Acceptable: >45 mg/dL Borderline low: 40-45 mg/dL Low: <40 mg/dL Ages > or = 20 years Desirable: >or= 60 mg/dL Low: <40 mg/dL Literature References: 1. Expert Panel on Integrated Guidelines for Cardiovascular Health and Risk Reduction in Children and Adolescents. Pediatrics 2011;128:S213 2. NCEP Expert Panel. Circulation 2004;110:227 Current Interpretive Data was last revised on 2018. LDL, calculated 56 <=129 mg/dL [facility] Comment: Interpretive Data Ages < or = 19 years Acceptable: <110 mg/dL Borderline high: 110-129 mg/dL High: >or= 130 mg/dL Ages > or = 20 years Optimal: <100 mg/dL Near optimal: 100-129 mg/dL Borderline high: 130-159 mg/dL High: >160 mg/dL Literature References: 1. Expert Panel on Integrated Guidelines for Cardiovascular Health and Risk Reduction in Children and Adolescents. Pediatrics 2011;128:S213 2. NCEP Expert Panel. Circulation 2004;110:227 Current Interpretive Data was last revised on 2018. Non-HDL Cholesterol 70 mg/dL [facility] Comment: Interpretive Data Ages < or = 19 years Acceptable: <120 mg/dL Borderline high: 120-144 mg/dL High: >145 mg/dL Ages > or = 20 years When triglycerides are >200 mg/dL, Non-HDL cholesterol is a secondary target of therapy with treatment goals that are 30 mg/dL greater than the LDL cholesterol target. Literature References: 1. Expert Panel on Integrated Guidelines for Cardiovascular Health and Risk Reduction in Children and Adolescents. Pediatrics 2011;128:S213 2. NCEP Expert Panel. Circulation 2004;110:227 Current Interpretive Data was last revised on 2018. Chol/HDL ratio 3 [facility] Blood 09/12/2021 2:39 AM TECHNICAL ILLUSTRATOR 09/12/2021 2:59 AM TECHNICAL ILLUSTRATOR us Jessica Davidson MD LAB BLOOD ORDERABLES Final Resul t [facility] Department [place] [address] from Last 3 Months or Most Recently Relevant to Health Maintenance Insurance [place] [facility] [place] CHOICE [place] [employer] [place] Advance Directives For more information, please contact: [phone] * Full Code (Latest Code Status on File) Date Activated Date Inactivated Comments 09/12/2021 1:52 AM 09/18/2021 6:52 PM Care Teams Coconut Candy Maker Relationship Specialty Start Date End Date Sin Rosa MD PCP - General 06/18/17
--- OUTSIDE RECORDS SUMMARY | 2024-10-31 06:37 | XMS_ITS | Encounter Summary ---
Author Organization [facility] Healthcare Address [address] [place] [address] Care Team Providers Care Radiation Technician Name Role Phone Sin Rosa MD Primary Care Provider + Encounter Details Date Type Department Care Team (Late st Contact Info) Description 09/17/2021 Documentation [facility] Case Management [address] [place] [address] Deana Dooley RN Social History Tobacco Use Types Packs/Day Years Used Date Smoking Tobacco: Never Smokeless Tobacco: Never Alcohol Use Standard Drinks/Week Comments Yes 0 (1 standard drink = 0.6 oz pur e alcohol) Sex and Gender Information Value Date Recorded Sex Assigned at Not on file Legal Sex Male 2:01 PM ACADEMIC ADMINISTRATOR Gender Identity Not on file Sexual Orientation Not on file documented as of this encounter Plan of Treatment Not on file documented as of this encounter Visit Diagnoses Not on filedocumented in this encounter Additional Health Concerns Infection Onset Date Last Indicated Resolved Time COVID19 Comment:Test positive with at home kit in 2021. Remains asymptomatic. Precautions no longer needed. 09/11/2021 09/11/2021 09/19/2021 12:23 PM ACADEMIC ADMINISTRATOR COVID: Recovered 09/19/2021 09/19/2021 01/17/2022 3:05 AM CDT documented as of this encounter Care Teams Radiation Technician Relationship Specialty Start Date End Date Sin Rosa MD PCP - General 06/18/17 documented as of this encounter
--- OUTSIDE RECORDS SUMMARY | 2024-10-31 06:37 | XMS_ITS | Referral Summary ---
Author Organization [facility] Address [address] [place] [address] Care Team Providers Care Filer Repairer Name Role Phone Sin Rosa MD Primary [...] 09/15/2021 Assessment & Plan (09/17/2021 12:33 PM BILLET HEATER): - 09/14 ongoing symptom from ICU transfer, KUB ordered, oral bowel reg and dulcolax suppository ordered - 09/15 persistent intermittent indigestion and nausea, tums, ekg and trop ordered, +BM x2 - 09/16 indigestion resolved, intermittent nausea suspect r/t narcotics - 09/17 resolved, tolerating diet COVID-19 09/14/2021 Assessment & Plan (09/18/2021 12:33 PM BILLET HEATER): - positive on 08/12 with at-home test, currently asymptomatic but considered positive here - 09/11 +covid swab inpatient - 09/17 remains asymptomatic --- complete isolation as recommended by the CDC, f/u with PCP Sebaceous cyst 09/14/2021 Assessment & Plan (09/18/2021 12:30 PM BILLET HEATER): 09/12 OR: excision of left chest wall cyst 09/15: local wound care - f/u [facility] 10d Type 2 diabetes mellitus 09/14/2021 Assessment & Plan (09/18/2021 12:33 PM BILLET HEATER): - A1c 09/12: 7.8 - 09/14 BG 184-219 - lantus + SSI - goal BG <180 - 09/15 endo consulted for management - johnson check for GLP1 complete - Endocrine discharge recommendations --- metformin 1000mg BID --- glipizide 5mg daily --- ozempic 0.25mg sq weekly --- f/u with established hat body inspector 2w --- diabetes education provided to patient by RN and COMMERCIAL LOAN ANALYST prior to discharge, patient reports feeling comfortable managing Ozempic administration Septic shock 09/14/2021 Assessment & Plan (09/14/2021 11:47 AM BILLET HEATER): - 09/12 perioperative hypotension, neosynephrine --- weaned, resolved HTN (hypertension) 09/14/2021 Assessment & Plan (09/17/2021 12:33 PM BILLET HEATER): Home med: norvasc, lisinopril --- held inpatient, resume as appropriate - 09/15 resumed - 09/17 HDS Anxiety and depression 09/14/2021 Assessment & Plan (09/15/2021 10:36 AM BILLET HEATER): Home med: zoloft --- continued - 09/15: 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 Overview (09/11/2021): Added automatically from request for surgery [id number] Assessment & Plan (09/18/2021 12:37 PM BILLET HEATER): - OR 09/12: R groin (undescended testes), [...] Quadrivalent, Spl it, Preservative Free, Intramuscular 06/18/2017 Social History Tobacco Use Types Packs/Day Years Used Date Smoking Tobacco: Never Smokeless Tobacco: Never Alcohol Use Standard Drinks/Week Comments Yes 0 (1 standard drink = 0.6 oz pur e alcohol) Sex and Gender Information Value Date Recorded Sex Assigned at Not on file Legal Sex Male 2:01 PM BILLET HEATER Gender Identity Not on file Sexual Orientation Not on file Last Filed Vital Signs Vital Sign Reading Time Taken Comments Blood Pressure 139/85 11/10/2021 10:08 AM CDT Pulse 78 11/10/2021 10:08 AM CDT Temperature 36.7 C (98.1 F) 11/10/2021 10:08 AM CDT Respiratory Rate 20 11/10/2021 10:0 8 AM CDT Oxygen Saturation 98% 11/10/2021 10: 08 AM CDT Inhaled Oxygen Concentration - - Weight 117.8 kg (259 lb 12.8 oz) 2021 12:56 PM BILLET HEATER Height 180.3 cm (5' 11 ) 09/28/2021 12: 56 PM BILLET HEATER Body Mass Index 36.23 09/28/2021 12:56 PM BILLET HEATER Plan of Treatment Not on file Procedures Procedure Name Priority Date/Time Associated Diagnosis Comments EGFR Routine 09/17/2021 10:11 PM BILLET HEATER HEMOGLOBIN A1C Timed 09/12/2021 2:39 AM BILLET HEATER LIPID PANEL Timed 09/12/2021 2:39 AM BILLET HEATER from Last 3 Months or Most Recently Relevant to Health Maintenance Results * eGFR (09/17/2021 10:11 PM BILLET HEATER) eGFR >90 90 - 130 mL/min/1. 73 m2 [facility] Comment: Interpretive Data Reference Interval Normal >/= [...] of Race in Diagnosing Kidney Disease, JASN 202). The CKD-EPI equation should not be used for patients with unstable renal function and has not been validated in children and those over 70. Current interpretive data was last reviewed 2021. Blood 09/17/2021 10:1 1 PM BILLET HEATER 09/17/2021 10:47 PM BILLET HEATER To Whitt DO LAB BLOOD ORDERABLES Fi nal Result [facility] [place] [address] * (ABNORMAL) Hemoglobin A1c (09/12/2021 2:39 AM BILLET HEATER) Hgb A1C 7.8(H) 4.0 - 5.6 % [facility] Estimated Average Glucose 177 mg/dL [facility] Comment: The ADA recommends reporting an estimated Average Glucose (eAG) with all Hemoglobin A1c results using the equation derived from a study of 507 normal and diabetic adults. Minority populations were underrepresented and children were not included. (Diabetes Care 2020; 43(S1): S66-S76). The eAG is not equivalent to a fasting glucose. Blood 09/12/2021 2:39 AM BILLET HEATER 09/12/2021 3:02 AM BILLET HEATER us Jessica Davidson MD LAB BLOOD ORDERABLES Final Resul t [facility] Department [place] [address] * (ABNORMAL) Lipid panel (09/12/2021 2:39 AM BILLET HEATER) Cholesterol 103 30 - 199 mg/dL [facility] Comment: Interpretive Data Ages < or = [...] revised on 2018. Triglycerides 72 <=149 mg/dL [facility] Comment: Hemolyzed; result may be falsely elevated [...] revised on 2018. HDL 33(L) >=40 mg/dL [facility] Comment: Interpretive Data Ages < or = [...] on 2018. LDL, calculated 56 <=129 mg/dL [facility] Comment: Interpretive Data Ages < or = [...] revised on 2018. Non-HDL Cholesterol 70 mg/dL [facility] Comment: Interpretive Data Ages < or = [...] last revised on 2018. Chol/HDL ratio 3 [facility] Blood 09/12/2021 2:39 AM BILLET HEATER 09/12/2021 2:59 AM BILLET HEATER us Jessica Davidson MD LAB BLOOD ORDERABLES Final Resul t [facility] Department [place] [address] from Last 3 Months or Most Recently Relevant to Health Maintenance Insurance [place] [facility] [place] Advance Directives For more information, please contact: [phone] * Full Code (Latest Code Status on File) Date Activated Date Inactivated Comments 09/12/2021 1:52 AM 09/18/2021 6:52 PM Care Teams Filer Repairer Relationship Specialty Start Date End Date Sin Rosa MD PCP - General 06/18/17
== END 2024-10-31 06:32 | disposition home or self-care (01) ==
PROVIDERS: PCP Internal Medicine Endocrinology, Diabetes & Metabolism; Visit Provider Internal Medicine Endocrinology, Diabetes & Metabolism
DX: E27.9 Disorder of adrenal gland, unspecified (principal); N28.89 Other specified disorders of kidney and ureter; R93.89 Abnormal findings on diagnostic imaging of other specified body structures
CPT/HCPCS: 74150

== ENCOUNTER 2024-11-17 09:40 | Outpatient (CLI) | payer BC, SELFPAY ==
--- NOTE | ~2024-11-17 | MR_ITS ---
EXAMINATION: MR abdomen wo/w con DATE: 11/17/2024 11:40 INDICATION: Neoplasm of kidney TECHNIQUE: Magnetic resonance imaging (MRI) of the abdomen was performed without and with 20 mL Multi jose alejandro intravenous contrast. Sequences included coronal T2-weighted SS-FSE, coronal and axial FS 2D-F IESTA, axial STIR FSE, axial T2-weighted SS-FSE, axial T2-weighted FS SS-FSE, axial diffusion-weighte d SE, axial dual-echo T1-weighted FSPGR, and axial and coronal T1-weighted LAVA. Postcontrast axial T 1-weighted LAVA images were obtained in a time course. Postcontrast coronal T1-weighted LAVA images w ere obtained. COMPARISON: CT dated 10/31/2024 FINDINGS: Heart size is normal. No pericardial or pleural effusion. 5 mm T2 hyperintense nonenhancing cyst in t he right hepatic lobe. Gallbladder, spleen, pancreas and bilateral adrenal glands are normal. 5 mm T2 hyperintense nonenhancing left renal cyst. There are also couple T2 hyperintense nonenhancing parape lvic cysts at the upper pole of the left kidney measuring up to 1.7 cm. 4.2 cm nonenhancing T2 hyperi ntense partially exophytic Bosniak 2 cystic lesion at the right kidney which demonstrates a single th in linear internal septation without discernible enhancement. Visualized bowels are unremarkable with no obstruction. Normal appendix. Bone marrow signal is normal throughout. There is likely inflammato ry stranding surrounding a 1 cm centrally T2 hyperintense and nonenhancing cystic lesion near the lev el of the skin surface along the inferior anterior left chest wall. IMPRESSION: 1. Right renal lesion of concern corresponds to 4.2 cm benign Bosniak 2 cystic lesion. 2. Likely inflammatory stranding surrounding a 1 cm cystic lesion near the skin surface at the inferi or left anterior chest wall which could represent a small abscess or epidermoid cyst. Correlate with physical exam and clinical history. Reviewed, dictated and finalized at location A. IMPRESSION: 1. Right renal lesion of concern corresponds to 4.2 cm benign Bosniak 2 cystic lesion. 2. Likely inflammatory stranding surrounding a 1 cm cystic lesion near the skin surface at the inferior left anterior chest wall which could represent a small abscess or epidermoid cyst. Correlate with physical exam and clinical history.
== END 2024-11-17 09:41 | disposition home or self-care (01) ==
PROVIDERS: PCP Urology; Visit Provider Internal Medicine Endocrinology, Diabetes & Metabolism
DX: N28.9 Disorder of kidney and ureter, unspecified (principal); N28.1 Cyst of kidney, acquired; D49.519 Neoplasm of unspecified behavior of unspecified kidney
CPT/HCPCS: 74183; A9577

== ENCOUNTER 2025-05-25 09:39 | Outpatient (CLI) | payer BC, SELFPAY ==
--- OUTSIDE RECORDS SUMMARY | 2024-06-21 16:00 | XMS_ITS ---
Author Organization [facility] Address [address] [address] Care Team Providers [employer] Supervisor Name Role Phone Fannie Neal Primary Care Provider Migration, Provider Unavailable Unavailable [facility]AS[facility]ISIT [facility] Encounter Medications Medication SIG (Take, Route, Frequency, Duration) Notes Start Date End Date Status dexAMETHasone 1 MG 1 tab(s) orally 1; Duration: 1 days 04/21/2024 Active Valtrex 500 MG 1 tab(s) orally once a day; Duration: 90 days 04/21/2024 Active Ozempic (0.25 or 0.5 MG/DOSE) 2 MG/3ML as directed subcutaneously once a week Active metFORMIN HCl ER 500 MG 1 tab(s) orally once a day Active Glimepiride 1 MG 1 tab(s) orally once a day Active Rosuvastatin Calcium 20 MG 1 tab(s) orally once a day Active Encounters Encounter Location Date Provider Diagnosis [facility] [address] [id number] 06/21/2024 Provider Migration Herpesviral infection, unspecified B00.9 and 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 Assessments Encounter Date Diagnosis (ICD Code) Assessment Notes Treatment Notes Treatment Clinical Notes Section Notes 06/21/2024 Herpesviral infection, unspecified (ICD-10 - B00.9) 06/21/2024 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 [facility] To [facility] Conversion Encounter. * Medical History: * Medications: T aking Rosuvastatin Calcium 20 MG Tablet 1 tab(s) orally once a day , Taking Glimepiride 1 MG Tablet 1 tab(s) orally once a day , Taking metFORMIN HCl ER 500 MG Tablet Extended Release 24 Hour 1 tab(s) orally once a day , Taking Ozempic (0.25 or 0.5 MG/DOSE)(Semaglutide(0.25 or 0.5MG/DOS)) 2 MG/3ML Solution Pen-injector as directed subcutaneously once a week Objective: * Vitals: Assessment: * Assessment: 1. H erpesviral infection, unspecified - B00.9 (Primary) 2 . 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 O ther adrenocortical overactivity Start dexAMETHasone Tablet, 1 MG, 1 tab(s), orally, 1, 1 days, 1, Refills 0. * Billing Information: * Visit Code: * Procedure Codes: * Electronic signature of Prov ider Migration on 05/25/2025 at 11:03 AM CDT Sign off status: Pending * Provider: Robin Lemon Date: 08/21/2023 Generated for Reggie burt/Panda/Nicoleitting on: 11:03 AM CDT
--- OUTSIDE RECORDS SUMMARY | 2024-07-11 03:00 | XMS_ITS ---
Author Organization [facility] Address [address] [place] [address] Care Team Providers Care Storeroom Supervisor Name Role Phone Fannie Neal Primary Care Provider REASON FOR VISIT 4 month FU Encounters Encounter Location Date Provider Diagnosis [facility], [facility] - Fannie Neal [address] [place] [address] 07/11/2024 Fannie Neal Plan Of Treatment No Information Progress Notes * Dru MCDONALDDOB: [birth year] (55 yo M)Acc No.[id number]:07/11/2024 Progress Notes Patient: Dru CALERO Provider: Johnna Neal MD :1970 A ge:54 Y S ex:Male Date:07/11/2024 Address:[address] [place] [address] Subjective: * Chief Complaints: * 1 . 4 month FU. * Medical History: Objective: * Vitals: Assessment: Plan: * Treatment: * Billing Information: * Visit Code: * Procedure Codes: * Electronic signature of Jose E Neal MD on 05/25/2025 at 11:03 AM CDT Sign off status: Pending * Provider: Johnna Neal MD Date: 09/11/2023 Generated for Reggie burt/Panda/eTransmitting on: 11:03 AM CDT
--- OUTSIDE RECORDS SUMMARY | 2024-07-11 03:00 | XMS_ITS ---
Author Organization [facility] Address [address] [place] [address] Care Team Providers Care Plate Hanger Name Role Phone Fannie Neal Primary Care Provider REASON FOR VISIT 4 month FU Encounters Encounter Location Date Provider Diagnosis [facility] Neal [address] [place] [address] 07/11/2024 Fannie Neal Plan Of Treatment No Information Progress Notes * Dru MCDONALDDOB: [birth year] (55 yo M)Acc No.[id number]:07/11/2024 Progress Notes Patient: Dru Garcia Provider: Johnna Neal MD :1970 A ge:54 Y S ex:Male Date:07/11/2024 Address:[address] [place], [place] [id number] Subjective: * Chief Complaints: * 4 month FU * Electronic signature of Jose E Neal MD on 05/25/2025 at 11:03 AM CDT Sign off status: Pending * Provider: Johnna Neal MD Date: 09/11/2023 Generated for Donnyi ng/Faamandeepg/eTransmitting on: 11:03 AM CDT
--- OUTSIDE RECORDS SUMMARY | 2024-08-15 03:00 | XMS_ITS ---
Author Organization [facility] Address [address] [place] [address] Care Team Providers Care Dispatcher Ship Pilot Name Role Phone Fannie Neal Primary Care Provider REASON FOR VISIT 4 month f/u tereso Encounters Encounter Location Date Provider Diagnosis [facility] [address] Neal [address] [place] [address] 08/15/2024 Fannie Neal Plan Of Treatment No Information Progress Notes * Dru MCDONALDDOB: [birth year] (55 yo M)Acc No.[id number]:08/15/2024 Progress Notes Patient: Dru Garcia Provider: Johnna Neal MD :1970 A ge:54 Y S ex:Male Date:08/15/2024 Address:[address] [place], [place] [address] Subjective: * Chief Complaints: * 4 month f/u tereso * Electronic signature of Jose E Neal MD on 05/25/2025 at 11:04 AM CDT Sign off status: Pending * Provider: Johnna Neal MD Date: 0 08/15/2024 Generated for Printi ng/Faxing/eTransmitting on: 1 11:04 AM CDT
--- OUTSIDE RECORDS SUMMARY | 2024-08-15 03:00 | XMS_ITS ---
Author Organization [facility] Address [address] [address] Care Team Providers Care Aircraft Powertrain Repairer Name Role Phone Fannie Neal Primary Care Provider [phone] REASON FOR VISIT 4 month f/u tereso Encounters Encounter Location Date Provider Diagnosis [facility], [facility] - Fannie Neal [address] [place] [address] 08/15/2024 Fannie Neal Plan Of Treatment No Information Progress Notes * TAMARADruDOB: [birth year] (55 yo M)Acc No.[id number]:08/15/2024 Progress Notes Patient: Dru CALERO Provider: Johnna Neal MD :1970 A ge:54 Y S ex:Male Date:08/15/2024 Address:[address] [place] [address] Subjective: * Chief Complaints: * 1 . 4 month f/u tereso. * Medical History: Objective: * Vitals: Assessment: Plan: * Treatment: * Billing Information: * Visit Code: * Procedure Codes: * Electronic signature of Jose E Neal MD on 05/25/2025 at 11:04 AM CDT Sign off status: Pending * Provider: Johnna Neal MD Date: 0 08/15/2024 Generated for Reggie ng/Faamandeepg/eTransmitting on: 11:04 AM CDT
--- OUTSIDE RECORDS SUMMARY | 2024-10-17 03:00 | XMS_ITS ---
Author Organization [facility] Address [address] [address] Care Team Providers Care City Library Director Name Role Phone Fannie Neal Primary Care Provider [phone] REASON FOR VISIT lab f/u tereso Encounters Encounter Location Date Provider Diagnosis [facility], [facility] - Fannie Neal [address] [place] [address] 10/17/2024 Fannie Neal Plan Of Treatment No Information Progress Notes * Dru MCDONALDDOB: [birth year] (55 yo M)Acc No.[id number]:10/17/2024 Progress Notes Patient: Dru CALERO Provider: Johnna Neal MD :1970 A ge:54 Y S ex:Male Date:10/17/2024 Address:[address] [place] [address] Subjective: * Chief Complaints: * 1 . Lab f/u tereso. * Medical History: Objective: * Vitals: Assessment: Plan: * Treatment: * Billing Information: * Visit Code: * Procedure Codes: * Electronic signature of Jose E Neal MD on 05/25/2025 at 11:03 AM CDT Sign off status: Pending * Provider: Johnna Neal MD Date: 0 10/17/2024 Generated for Reggie burt/Panda/eTransmitting on: 11:03 AM CDT
--- NOTE | ~2025-05-25 | MR_ITS ---
EXAMINATION: MR abdomen wo/w con DATE: 05/25/2025 11:01 INDICATION: Renal mass TECHNIQUE: Magnetic resonance imaging (MRI) of the abdomen was performed without and with 20 mL Multihance intravenous contrast. Sequences included coronal T2- weighted SS-FSE, coronal and axial FS 2D-FIESTA, axial STIR FSE, axial T2- weighted SS-FSE, axial T2-weighted FS SS-FSE, axial diffusion-weighted SE, axial dual-echo T1-weighted FSPGR, and axial and coronal T1-weighted LAVA. Postcontrast axial T1-weighted LAVA images were obtained in a time course. Postcontrast coronal T1-weighted LAVA images were obtained. COMPARISON: 11/17/2024 FINDINGS: Heart size is normal. No pericardial or pleural effusion. Unchanged 5 mm T2 hyperintense nonenhancing cyst in the right hepatic lobe. Gallbladder, spleen, pancreas and bilateral adrenal glands are normal. 1.1 cm simple appearing left renal cyst. Unchanged 4.2 cm Bosniak 2 cystic lesion at the right kidney with single thin linear internal septation without discernible enhancement with no wall thickening or soft tissue component. Bowels are unremarkable with no obstruction. Normal appendix. No pathologically enlarged abdominal or upper pelvic lymphadenopathy. Again seen is thin rim of peripheral enhancement surrounding a 1 cm T2 hyperintense cystic lesion along the skin surface along the left anterior inferior chest wall along the intercostal margin. There is interval increase in size of a 3.9 x 1.5 x 2.1 cm region of a reticulated pattern of enhancement in the underlying subcutaneous fat. Bones are unremarkable with normal marrow signal throughout. IMPRESSION: 1. No interval change in a 4.2 cm benign Bosniak 2 cystic right renal lesion. 2. Interval progression of a reticulated pattern of enhancement in the subcutaneous fat deep to a 1 cm cystic lesion near the skin surface at the anterior inferior chest wall costal margin. A cystic lesion suggests either small abscesses or epidermoid cyst with the surrounding a reticulated enhancement most likely infectious/inflammatory in etiology. Given the progression over also consider neoplastic including malignant etiologies. Correlate with clinical history and physical exam. Could consider biopsy as clinically indicated for more definitive determination. Reviewed, dictated and finalized at location A. IMPRESSION: 1. No interval change in a 4.2 cm benign Bosniak 2 cystic right renal lesion. 2. Interval progression of a reticulated pattern of enhancement in the subcutan eous fat deep to a 1 cm cystic lesion near the skin surface at the anterior inf erior chest wall costal margin. A cystic lesion suggests either small abscesses or epidermoid cyst with the surrounding a reticulated enhancement most likely infectious/inflammatory in etiology. Given the progression over also consider n eoplastic including malignant etiologies. Correlate with clinical history and p hysical exam. Could consider biopsy as clinically indicated for more definitive determination.
--- OUTSIDE RECORDS SUMMARY | 2025-05-25 11:03 | XMS_ITS | Patient Health Record ---
Author Organization [facility] Address [address] [address] Care Team Providers Care X Ray Developer Name Role Phone Fannie Neal Primary Care Provider [phone] Migration, Provider Unavailable Unavailable Allergies No Known Allergies Reason For Referral No Information Medications Medication SIG (Take, Route, Frequency, Duration) Notes Start Date End Date Status Paxlovid (300/100) 20 x 150 MG & 10 x 100MG 3 tablets Orally Twice a day; Duration: 5 days 08/14/2024 Active dexAMETHasone 1 MG 1 tab(s) orally 1; Duration: 1 days 04/21/2024 Active Valtrex 500 MG 1 tab(s) orally once a day; Duration: 90 days 04/21/2024 Active Ozempic (0.25 or 0.5 MG/DOSE) 2 MG/3ML as directed subcutaneously once a week Active Ozempic (0.25 or 0.5 MG/DOSE) 2 MG/3ML inject 0.5 mg Subcutaneous weekly; Duration: 90 days 07/24/2024 Active Ozempic (0.25 or 0.5 MG/DOSE) 2 MG/3ML inject 0.5 mg Subcutaneous weekly; Duration: 90 days 08/12/2024 Active Zithromax Z-Bobby 250 MG as directed Orall y daily; Duration: 5 days 08/13/2024 Active metFORMIN HCl ER 500 MG 1 tab(s) orally once a day Active Albuterol Sulfate HFA 108 (90 Base) MCG/ACT 1 puff as needed Inhalation every 4 hrs; Duration: 30 days 08/13/2024 Active Glimepiride 1 MG 1 tab(s) orally once a day Active methylPREDNISolone 4 MG as directed Oral ly daily; Duration: 6 days 08/13/2024 Active Rosuvastatin Calcium 20 MG 1 tab(s) oral ly once a day Active Problems Problem Type SNOMED Code ICD Code Onset Dates Problem Status W/U Status Risk Notes Problem Hyperglycemia due to type 2 diabetes mellitus (865681467443005) Type 2 diabetes mellitus with hyperglycemia (E11.65) Active confirmed Problem Hyperlipidemia (25300820) Hyperlipidemia, unspecified (E78.5) Active confirmed Problem Essential hypertension (90676777) Essential (primary) hypertension (I10) Active confirmed Problem Type II diabetes mellitus without complication (922826431) Type 2 diabetes mellitus without complications (E11.9) Active confirmed Problem Disorder of corticoadrenal overactivity (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) Active confirmed Encounters Encounter Location Date Provider Diagnosis [place] - Fannie Neal [address] [place] [address] 10/17/2024 Fannie Neal [address] [address] 06/21/2024 Provider Migration Herpesviral infection, unspecified B00.9 and 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 [facility] [address] [place] [address] 07/24/2024 Fannie Neal Type 2 diabetes mellitus with hyperglycemia E11.65 [facility] - Fannie Neal [address] [place] [address] 07/28/2024 Fannie Neal [facility] [address] [place] [address] 08/12/2024 Fannie Neal Type 2 diabetes mellitus with hyperglycemia E11.65 [facility] [address] [place] [address] 08/13/2024 Fannie Neal Acute bronchitis, unspecified J20.9 [facility] - Fannie Neal [address] [place] [address] 08/14/2024 Fannie Neal COVID-19 U07.1 [facility] [address] [place] [address] 06/26/2024 Fannie Neal [facility] [address] [place] [address] 08/13/2024 Fannie Neal Assessments Encounter Date Diagnosis (ICD Code) Assessment Notes Treatment Notes Treatment Clinical Notes Section Notes 06/21/2024 Herpesviral infection, unspecified (ICD-10 - B00.9) 07/24/2024 Type 2 diabetes mellitus with hyperglycemia (ICD-10 - E11.65) 08/12/2024 Type 2 diabetes mellitus with hyperglycemia (ICD-10 - E11.65) 08/13/2024 Acute bronchitis, unspecified (ICD-10 - J20.9) 08/14/2024 COVID-19 (ICD-10 - U07.1) 06/21/2024 Other adrenocortical overactivity (ICD-10 - E27.0) Plan Of Treatment Pending Test Test Name Order Date Echocardiogram 12/14/2023 colonoscopy-screening 12/14/2023 Insurance Providers Payer Name Payer Address Payer Phone Subscriber Number Group Number Insured Name Patient Relationship to Insured Coverage Start Date Coverage End Date [facility] 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
--- OUTSIDE RECORDS SUMMARY | 2025-05-25 11:04 | XMS_ITS | Patient Health Record ---
Author Organization [facility] Address [address] [place] [address] Care Team Providers Care Principal Technical Architect Name Role Phone Fannie Neal Primary Care Provider [phone] Migration, Provider Unavailable Unavailable Allergies No Known Allergies Results Component Value Reference Range Flag Notes .COMPREHENSIVE METABOLIC ROQUE EL (67302) CMP Reviewed date:10/15/2024 11:11:45 AM Interpretation: Performing Lab:[place], [facility]-[id number] [place], OtygsnGQ[address] Zully Trejo MD Notes/Report: FASTING:YES FASTING: YES GLUCOSE 152 65-99 mg/dL H value >125 mg/dL indicates that they may have follow-up test. Fasting reference interval diabetes and this should be confirmed with a For someone without known diabetes, a glucose UREA NITROGEN (BUN) 21 7-25 mg/dL N CREATININE 0.83 0.70-1.30 mg/dL N EGFR 103 > OR = 60 mL/min/1.73m2 N BUN/CREATININE RATIO SEE NOTE: 6-22 (calc) Not Reported: BUN and Creatinine are within reference range. SODIUM 137 135-146 mmol/L N POTASSIUM 4.2 3.5-5.3 mmol/L N CHLORIDE 100 98-110 mmol/L N CARBON DIOXIDE 27 20-32 mmol/L N CALCIUM 9.8 8.6-10.3 mg/dL N PROTEIN, TOTAL 7.6 6.1-8.1 g/dL N ALBUMIN 4.6 3.6-5.1 g/dL N GLOBULIN 3.0 1.9-3.7 g/dL (calc) N ALBUMIN/GLOBULIN RATIO 1.5 1.0-2.5 (calc) N BILIRUBIN, TOTAL 0.6 0.2-1.2 mg/dL N ALKALINE PHOSPHATASE 46 35-144 U/L N AST 15 10-35 U/L N ALT 14 9-46 U/L N IRON AND TOTAL IRON BINDING CAPACITY (7573) Reviewed date:10/15/2024 11:11:45 AM Interpretation: Performing Lab:[facility] HAGAN-[id number] [place], EsdfzdBB[address] Zully Trejo MD Notes/Report: FASTING:YES FASTING: YES IRON, TOTAL 127 50-180 mcg/dL N IRON BINDING CAPACITY 348 250-425 mc g/dL (calc) N % SATURATION 36 20-48 % (calc) N .LIPID PANEL, STANDARD (6070 ) Reviewed date:10/15/2024 11:11:45 AM Interpretation: Performing Lab:[facility] [email or web address] Diaa10101 [place], QbrhdoIT[address] Zully Trejo MD Notes/Report: FASTING:YES FASTING: YES CHOLESTEROL, TOTAL 159 <200 mg/dL N HDL CHOLESTEROL 65 > OR = 40 mg/dL N TRIGLYCERIDES 60 <150 mg/dL N LDL-CHOLESTEROL 80 N better accuracy than the Friedewald equation in the <70 mg/dL for patients with CHD or diabetic patients (http://Moviepilot.[employer]/faq/KHW901) Reference range: <100 Kurtis VILLASEÑOR et al. KETTY. 2013;310(19): 0190-7167 calculation, which is a validated novel method providing with > or = 2 CHD risk factors. Desirable range <100 mg/dL for primary prevention; estimation of LDL-C. LDL-C is now calculated using the [facility] CHOL/HDLC RATIO 2.4 <5.0 (calc) N NON HDL CHOLESTEROL 94 <130 mg/dL (calc) N factor, treating to a non-HDL-C goal of <100 mg/dL option. For patients with diabetes plus 1 major ASCVD risk (LDL-C of <70 mg/dL) is considered a therapeutic .ALBUMIN, RANDOM URINE W/CRE ATININE (6517) Reviewed date:10/15/2024 11:11:45 AM Interpretation: Performing Lab:[facility] HAGANa10101 [place], [id number] Zully Trejo MD Notes/Report: FASTING:YES FASTING: YES CREATININE, RANDOM URINE 31 20-320 mg/dL N ALBUMIN, URINE 1.7 See Note: mg/dL N Not established Reference Range: Reference Range ALBUMIN/CREATININE RATIO, RANDOM URINE 55 <30 mg/g creat H abnormal before considering a patient to be Albuminuria Category Result (mg/g creatinine) specimens collected within a 3-6 month period be The ADA defines abnormalities in albumin Normal to Mildly increased <30 within a diagnostic category. The ADA recommends that at least two of three Severely increased > OR = 300 excretion as follows: Moderately increased 30-299 .CBC (INCLUDES DIFF/PLT) (63 99) Reviewed date:10/15/2024 11:11:45 AM Interpretation: Performing Lab:[facility] [employer]-[id number] [place], [id number] CarinNicole Trejo MD Notes/Report: FASTING:YES FASTING: YES WHITE BLOOD CELL COUNT 7.7 3.8-10.8 Thousand/uL N RED BLOOD CELL COUNT 4.83 4.20-5.80 Million/uL N HEMOGLOBIN 16.2 13.2-17.1 g/dL N HEMATOCRIT 48.2 38.5-50.0 % N MCV 99.8 80.0-100.0 fL N MCH 33.5 27.0-33.0 pg H MCHC 33.6 32.0-36.0 g/dL N not clinically significant; however, it should be red cell parameters and the patient's clinical value (in the range of 30 to 32 g/dL) is most likely interpreted with caution in correlation with other condition. For adults, a slight decrease in the calculated MCHC RDW 12.0 11.0-15.0 % N PLATELET COUNT 331 140-400 Thousand/uL N MPV 9.2 7.5-12.5 fL N ABSOLUTE NEUTROPHILS 5613 7440-6595 cells/uL N ABSOLUTE LYMPHOCYTES 1200 601-8133 cells/uL N ABSOLUTE MONOCYTES 493 200-950 cells/uL N ABSOLUTE EOSINOPHILS 39 15-500 cells/uL N ABSOLUTE BASOPHILS 39 0-200 cells/uL N NEUTROPHILS 72.9 N LYMPHOCYTES 19.7 N MONOCYTES 6.4 N EOSINOPHILS 0.5 N BASOPHILS 0.5 N .HEMOGLOBIN A1c (496) Reviewed date:10/15/2024 11:11:45 AM Interpretation: Performing Lab:[facility] CenterXckfu93972 Administration Gerald Ruiz EhnntkbPE[address] Zully Trejo Notes/Report: FASTING:YES FASTING: YES HEMOGLOBIN A1c 7.1 <5.7 % of total Hgb H diabetes and this should be confirmed with a follow-up other considerations. Currently, no consensus exists regarding use of greater than or equal to 7% indicates suboptimal duration of diabetes, age, comorbid conditions, and that their diabetes is well controlled and a value control. A1c targets should be individualized based on value of 6.5% or greater indicates that they may have test. hemoglobin A1c for diagnosis of diabetes for children. For someone with known diabetes, a value <7% indicates For someone without known diabetes, a hemoglobin A1c DHEA SULFATE (402) Reviewed date:10/15/2024 11:11:45 AM Interpretation: Performing Lab:[facility] H[facility]AN-Bchnam63230[place], [id number] Zully Trejo MD Notes/Report: FASTING:YES FASTING: YES DHEA SULFATE 34 32-279 mcg/dL N VITAMIN B12/FOLATE, SERUM PA RA (4658) Reviewed date:10/15/2024 11:11:45 AM Interpretation: Performing Lab:[facility] HAGAN LenexaKS[address] Zully Trejo MD Notes/Report: FASTING:YES FASTING: YES VITAMIN B12 157 179-6358 pg/mL N FOLATE, SERUM 10.6 N Reference Range Borderline: 3.4-5.4 Low: <3.4 Normal: >5.4 T4, FREE (866) Reviewed date:10/15/2024 11:11:45 AM Interpretation: Performing Lab:[facility] HAGAN, [id number] Zully Trejo MD Notes/Report: FASTING:YES FASTING: YES T4, FREE 1.2 0.8-1.8 ng/dL N TSH (899) Reviewed date:10/15/2024 11:11:45 AM Interpretation: Performing Lab:[facility] HAGAN LenexaKS[address] Zully Trejo MD Notes/Report: FASTING:YES FASTING: YES TSH 1.26 0.40-4.50 mIU/L N ACTH, PLASMA (211) Reviewed date:10/19/2024 12:14:52 PM Interpretation: Performing Lab:Silver JENNINGS/Shilpi Noguera [id number] [facility] , OlyymrufcMD[address] Akbar Huerta M.D.,PhD Notes/Report: FASTING:YES FASTING: YES ACTH, PLASMA 6 6-50 pg/mL Reference range applies only to specimens collected between 7am-10am. CORTISOL, TOTAL (367) Reviewed date:11/01/2024 09:00:46 PM Interpretation: Performing Lab:[facility] HAGAN-Ntayne07447 [place], [id number] Zully Trejo MD Notes/Report: FASTING:YES FASTING: YES CORTISOL, TOTAL 1.1 L Reference Range: For 8 a.m.(7-9 a.m.) Specimen: 4.0-22.0 * Please interpret above results accordingly * Reference Range: For 4 p.m.(3-5 p.m.) Specimen: 3.0-17.0 HSV 1/2 IGG,TYPE SPECIFIC AB (6447) Reviewed date:11/01/2024 09:00:46 PM Interpretation: Performing Lab:[facility] HAGAN-Nvqdqj16477 [place], LwlrsdKE[address] Zully Trejo MD Notes/Report: FASTING:YES FASTING: YES HSV 1 IGG, TYPE SPECIFIC AB <0.90 N HSV 2 IGG, TYPE SPECIFIC AB 5.65 H For additional information, please refer to This assay utilizes recombinant type-specific antigens or screening. ----- past infection. If recent HSV infection is suspected >1.09 Positive should be repeated in 4-6 weeks. The performance positive result cannot distinguish between recent and but the results are negative or equivocal, the assay 0.90-1.09 Equivocal http://education.Cover.[employer]/faq/CKI111 (This link is being provided for informational/ Index Interpretation for pediatric populations, immunocompromised patients, educational purposes only.) characteristics of the assay have not been established to differentiate HSV-1 from HSV-2 infections. A <0.90 Negative DEXAMETHASONE (54370) Reviewed date:11/01/2024 09:00:46 PM Interpretation: Performing Lab:[facility],[address] [facility] Fidelia King MD,PhD,ANTHONY Notes/Report: FASTING:YES FASTING: YES DEXAMETHASONE 242 used for clinical purposes. Baseline: Less than 20 ng/dL This test was developed and its analytical performance It has not been cleared or approved by the FDA. This assay Reference Ranges for Dexamethasone: characteristics have been determined by [employer]. has been validated pursuant to the CLIA regulations and is 1 mg dexamethasone overnight: 180-550 ng/dL (8:00-10:00 AM) CORTISOL, LC/MS, SALIVA, 2 S AMPLES (39201) Reviewed date:11/02/2024 03:05:03 PM Interpretation: Performing Lab:Silver LEONARD/[facility],[address] [facility] Fidelia King MD,PhD,ANTHONY Notes/Report: URINE VOLUME: 2000/NG DRAW DATE 1 10/21/2024 DRAW TIME 1 1100PM CORTISOL, SALIVA SAMPLE 1 0.03 10 PM-1 AM: < OR = 0.09 mcg/dL noon-2 PM: < OR = 0.21 mcg/dL has been validated pursuant to the CLIA regulations and is 4-6 PM: < OR = 0.15 mcg/dL used for clinical purposes. This test was developed and its analytical performance 8-10 AM: 0.04-0.56 mcg/dL characteristics have been determined by [email or web address]. It has not been cleared or approved by the FDA. This assay DRAW DATE 2 10/22/2024 DRAW TIME 2 1100PM CORTISOL, SALIVA SAMPLE 2 <0.03 8-10 AM: 0.04-0.56 mcg/dL used for clinical purposes. characteristics have been determined by [facility]. It has not been cleared or approved by the FDA. This assay has been validated pursuant to the CLIA regulations and is 10 PM-1 AM: < OR = 0.09 mcg/dL 4-6 PM: < OR = 0.15 mcg/dL This test was developed and its analytical performance noon-2 PM: < OR = 0.21 mcg/dL CORTISOL, FREE, 24 HOUR URIN Jessica (79452) Reviewed date:11/01/2024 09:00:45 PM Interpretation: Performing Lab:[facility]/Shilpi [facility],[address] [address] [facility] CenterCA[address] Fidelia Knig MD,PhD,ANTHONY Notes/Report: URINE VOLUME: 2000/NG TOTAL VOLUME 2000 CORTISOL, FREE, URINE 35.3 4.0-50.0 mcg/24 h CORTISOL, FREE, URINE 59.9 H ADULTS: 3.1-42.3 Reference Range: CREATININE, URINE 0.59 0.50-2.15 g/24 h characteristics have been determined by [employer]. This test was developed and its analytical performance has been validated pursuant to the CLIA regulations and is It has not been cleared or approved by the FDA. This assay used for clinical purposes. .COMPREHENSIVE METABOLIC ROQUE EL (12246) [facility] Reviewed date:05/06/2025 01:41:05 PM Interpretation: Performing Lab:[facility]-Auevco45101 [place], QeqxbjZO[address] Zully Trejo MD Notes/Report: FASTING:YES FASTING: YES GLUCOSE 150 65-99 mg/dL H Fasting reference interval follow-up test. For someone without known diabetes, a glucose diabetes and this should be confirmed with a value >125 mg/dL indicates that they may have UREA NITROGEN (BUN) 13 7-25 mg/dL N CREATININE 0.85 0.70-1.30 mg/dL N EGFR 102 > OR = 60 mL/min/1.73m2 N BUN/CREATININE RATIO SEE NOTE: 6-22 (calc) reference range. Not Reported: BUN and Creatinine are within SODIUM 142 135-146 mmol/L N POTASSIUM 4.6 3.5-5.3 mmol/L N CHLORIDE 102 98-110 mmol/L N CARBON DIOXIDE 32 20-32 mmol/L N CALCIUM 9.5 8.6-10.3 mg/dL N PROTEIN, TOTAL 6.9 6.1-8.1 g/dL N ALBUMIN 4.1 3.6-5.1 g/dL N GLOBULIN 2.8 1.9-3.7 g/dL (calc) N ALBUMIN/GLOBULIN RATIO 1.5 1.0-2.5 (calc) N BILIRUBIN, TOTAL 0.8 0.2-1.2 mg/dL N ALKALINE PHOSPHATASE 38 35-144 U/L N AST 13 10-35 U/L N ALT 12 9-46 U/L N Reason For Referral No Information Medications Medication SIG (Take, Route, Frequency, Duration) Notes Start Date End Date Status Valtrex 500 MG Tablet 1 tab(s) orally on ce a day; Duration: 90 days 04/21/2024 Not-Takin g Rosuvastatin Calcium 20 MG Tablet TAKE 1 TABLET BY MOUTH ONCE DAILY AT BEDTIME FOR 90 DAYS; Duration: 90 Active Losartan Potassium 50 MG Tablet Take 1 tablet by mouth once daily for 90 days; Duration: 90 Active metFORMIN HCl ER 500 MG Tablet Extended Release 24 Hour TAKE 1 TABLET BY MOUTH TWICE DAILY WITH MEALS; Duration: 90 Active Ozempic (1 MG/DOSE) 4 MG/3ML Solution Pen-injector INJECT 1 SYRINGE SUBCUTANEOUSLY ONCE A WEEK; Duration: 84 Active Eplerenone 25 MG Tablet 1 tablet Orally Once a day; Duration: 90 days 10/17/2024 Active Glimepiride 1 MG Tablet 1 tab(s) orally once a day Active miFEPRIStone 300 MG Tablet 1 tablet with a meal Orally Once a day Active Social History Section Notes: Non-Contributory Problems Problem Type SNOMED Code ICD Code Onset Dates Problem Status W/U Status Risk Notes Problem Hyperglycemia due to type 2 diabetes mellitus (922351521715655) Type 2 diabetes mellitus with hyperglycemia (E11.65) Active confirmed Problem Type II diabetes mellitus without complication (498800040) Type 2 diabetes mellitus without complications (E11.9) Active confirmed Problem Disorder of corticoadrenal overactivity (961153711) 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) Active confirmed Problem Disorder of adrenal gland (66296416) Disorder of adrenal gland, unspecified (E27.9) Active confirmed Problem Essential hypertension (15524285) Essential (primary) hypertension (I10) Active confirmed Problem Dyslipidemia (492897553) Dyslipidemia (E78.5) Active confirmed Problem Hypercortisolism (87264071) Hypercortisolism (E24.9) Active confirmed Vital Signs Heart Rate 78 /min 05/07/2025 Respiratory Rate 12 /min 05/07/2025 Height-cm 177.8 cm 05/07/2025 Blood pressure diastolic 82 mm Hg 05/07/2025 Oximetry 97 % 11/28/2024 Weight-kg 120.2 kg 05/07/2025 Height 70 in 05/07/2025 Blood pressure systolic 148 mm Hg 05/07/2025 Weight 265 lbs 05/07/2025 BMI 38.02 kg/m2 05/07/2025 Encounters Encounter Location Date Provider Diagnosis [address] [id number] 06/21/2024 Provider Migration Herpesviral infection, unspecified B00.9 and 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 Neal [address] [place] [phone] 10/17/2024 Fanniechavez Neal Type 2 diabetes mellitus with hyperglycemia E11.65 ; Dyslipidemia E78.5 ; Disorder of adrenal gland, unspecified E27.9 ; Essential (primary) hypertension I10 and Dietary counseling and surveillance Z71.[address] Neal [address] [place] [phone] 11/28/2024 Fannie Ángel Essential (primary) hypertension I10 ; Type 2 diabetes mellitus with hyperglycemia E11.65 ; Dyslipidemia E78.5 ; 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 and Dietary counseling and surveillance Z71.[address] Neal [address] [place] [phone] 05/07/2025 Fannie Ángel Type 2 diabetes mellitus with hyperglycemia E11.65 ; Essential (primary) hypertension I10 ; Dyslipidemia E78.5 and Hypercortisolism E24.9 AMMO [facility] [address] [place] [phone] 07/24/2024 Fanniechavez Neal Type 2 diabetes mellitus with hyperglycemia E11.[address] Neal [address] [place] [address] 07/28[facility]20[facility] [address] [place] [address] 08/12/2024 Fannie Ángel Type 2 diabetes mellitus with hyperglycemia E11.[address] [phone] 08/13/2024 Fannie Neal Acute bronchitis, unspecified J20.[address] 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 Neal [address] [place] [address] 11/07/[address] Neal [address] [place] [address] 11/07/2024 Fannie Neal AMMO [facility] [address] [place] [address] 01/06/[address] Neal [address] [place], [place] [phone] 01/06/[address] Neal [address] [place], [place] [phone] 01/09/2025 Fannie Neal AMMO [facility] [address] [place], [place] [id number] 02/03/2025 Fannie Neal AMMO [facility] [address] [place], [place] [phone] 03/18/[address] Neal [address] [place], [place] [phone] 04/08/2025 Fannie Neal [address] [place], [place] [phone] 04/27/2025 Fannie Neal [address] [place], [place] [phone] 05/13/2025 Fannie Neal AMMO [facility] [address] [place], [place] [phone] 06/26/2024 Fannie Neal AMMO [facility] [address] [place] [address] 08/13/2024 Fannie Neal Assessments Encounter Date Diagnosis (ICD Code) Assessment Notes Treatment Notes Treatment Clinical Notes Section Notes 07/24/2024 Type 2 diabetes mellitus with hyperglycemia (ICD-10 - E11.65) 08/12/2024 Type 2 diabetes mellitus with hyperglycemia (ICD-10 - E11.65) 08/13/2024 Acute bronchitis, unspecified (ICD-10 - J20.9) 08/14/2024 COVID-19 (ICD-10 - U07.1) 10/17/2024 Type 2 diabetes mellitus with hyperglycemia (ICD-10 - E11.65) 10/17/2024 Dyslipidemia (ICD-10 - E78.5) 11/01/2024 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9) 11/28/2024 Dyslipidemia (ICD-10 - E78.5) 11/28/2024 Other adrenocortical overactivity (ICD-10 - E27.0) 11/28/2024 Dietary counseling and surveillance (ICD-10 - Z71.3) Spent 15 minutes preventative counseling patient on dietary recommendations and changes in setting of hyperglycemia- need to restrict refined sugars and processed foods and incorporate up to 150 minutes of moderate level activity weekly. 10/17/2024 Dietary counseling and surveillance (ICD-10 - Z71.3) Spent 15 minutes preventative counseling patient on dietary recommendations and changes in setting of hyperglycemia- need to restrict refined sugars and processed foods and incorporate up to 150 minutes of moderate level activity weekly. 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 Type 2 Diabetes Mellitus- Continue current diabetes medications- Discuss potential increase of Ozempic to 1 mg- Encourage consistent blood glucose monitoring- Educate on importance of medication adherence- Follow up on A1c improvement at next visit 3. Hypertension- Start losartan 50 mg daily for blood pressure control and kidney protection- Target blood pressure of 135/80 mmHg or less- Educate patient on home blood pressure monitoring- Consider adding eplerenone in the future if Galileo's syndrome is confirmed 4. Hyperlipidemia- Continue rosuvastatin 20 mg at bedtime 5. Chronic Skin Lesion- Follow up with laser cutter appointment scheduled for November- Monitor for any signs of infection or worsening of the lesion Spent 25 minutes preparing to see the patient (ex review of tests/chart), obtaining and / or reviewing separately obtained history, performing a medically appropriate examination and/or evaluation, counseling and educating the patient/family/career orientation teacher, ordering medications, tests, or procedures, referring and communicating with other health career specialist, documenting clinical information in the electronic or other health record, independently interpreting results and communicating results to the patient/family/career orientation teacher and care coordinating patient plan. Patient alert and oriented x 4 and aware of discussion noted above and in agreeance to plan in management of well controlled type 2 DM, dyslipidemia, hypertension, weight gain/ obesity / concern for hypercortisolism. 11/28/2024 Other Assessment and Plan: 1. Adrenal Hyperplasia with Hypercortisolism- MRI findings suggest adrenal gland hyperplasia, causing chronic irritation and elevated cortisol release- Symptoms include hypertension (BP 154/80 today, previously 180 and 200), abdominal adiposity, insomnia, and treatment-resistant diabetes (A1c fluctuating between 6.1 and 7.4)- Urine cortisol level elevated at 67- Hypercortisolism potentially contributing to anxiety, recurrent infections, and bone loss- Initiate Recorlev therapy with medication mailed to patient's home- Informed consent: May cause initial tiredness- Check potassium levels every 2 weeks- Monitor liver enzymes monthly for first three months- Patient to sign consent for Recorlev and associated testing- Follow up in a few months 2. Hypertension- Blood pressure today 154/80, improved from previous readings of 180 and 200 at urologist- Hypertension likely secondary to hypercortisolism- Monitor blood pressure with Recorlev treatment 3. Type 2 Diabetes Mellitus- A1c fluctuating between 6.1 and 7.4- Consider transitioning from Ozempic to Recorlev- Continue monitoring A1c levels 4. Fatigue- Patient reports recent fatigue- Patient attempting to reduce caffeine intake- Monitor fatigue levels with initiation of Recorlev therapy Spent 25 minutes preparing to see the patient (ex review of tests/chart), obtaining and / or reviewing separately obtained history, performing a medically appropriate examination and/or evaluation, counseling and educating the patient/family/career orientation teacher, ordering medications, tests, or procedures, referring and communicating with other health career specialist, documenting clinical information in the electronic or other health record, independently interpreting results and communicating results to the patient/family/career orientation teacher and care coordinating patient plan. Patient alert and oriented x 4 and aware of discussion noted above and in agreeance to plan in management of uncontrolled type 2 DM/hypercortisolism , dyslipidemia an obesity/weight management. 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 Galileo's syndrome on mifepristone therapyAssessment: Patient has been on daily mifepristone (Korlym) for 2.5 weeks with positive dexamethasone suppression test and adrenal micro nodules supporting the diagnosis. Early therapeutic response is evident with facial puffiness reduction noted by clinician and complete resolution of previously nightly leg cramps since starting treatment. Patient experiencing mild nausea, particularly in mornings that resolves with activity and fluid intake, and intermittent fatigue that improves with exercise. No significant weight loss noticed yet by patient. Recent labs show glucose 150 mg/dL (slightly elevated), potassium 4.6 mEq/L (normal), and normal creatinine and liver function. Patient tolerating current dose well without severe symptoms.Plan:- Continue mifepristone (Korlym) 300 mg daily for at least one month before considering dose escalation- Plan to increase to 600 mg daily (2 tablets) using alternating schedule (one tablet, two tablets, one tablet, two tablets) when appropriate- Obtain follow-up labs in 2-4 weeks to monitor potassium and other parameters- Patient to refill current prescription as needed- Consider Zofran if nausea worsens- Patient to check weight and report findings- Recommend [facility] [place] facility for emergency care if needed due to familiarity with medication HypertensionAssessm ent: Blood pressure elevated at 160/90 mmHg, improved when previously on 2 losartan daily but worsened after reducing to 1 losartan when starting eplerenone. Currently on losartan and eplerenone 25 mg daily. Patient reports some leg swelling sensation without visible edema that resolves with activity.Plan:- Consider increasing eplerenone to 50 mg daily (2 tablets of 25 mg)- Plan to increase eplerenone to 2 tablets daily when mifepristone is increased to 600 mg to counteract potassium and blood pressure effects- Obtain labs in 2 weeks if eplerenone increased to monitor potassium levels- Patient to monitor blood pressure and report if consistently in 160s/90s range Type 2 diabetes mellitusAssessment: Glucose control acceptable with recent glucose 150 mg/dL. Patient reports postprandial glucose around 180 mg/dL at 45-60 minutes, decreasing to 130 mg/dL later. Currently on Ozempic 1 mg and glimepiride as needed.Plan:- Continue Ozempic 1 mg- Continue glimepiride as needed for glucose control but patient not needing- Patient reports infrequent use of glimepiride with current regimen Spent 25 minutes preparing to see the patient (ex review of tests/chart), obtaining and / or reviewing separately obtained history, performing a medically appropriate examination and/or evaluation, counseling and educating the patient/family/career orientation teacher, ordering medications, tests, or procedures, referring and communicating with other health career specialist, documenting clinical information in the electronic or other health record, independently interpreting results and communicating results to the patient/family/career orientation teacher and care coordinating patient plan. Patient alert and oriented x 4 and aware of discussion noted above and in agreeance to plan in management of hypercortisolism, well controlled type 2 DM, dyslipidemia, weight management, and hypertension. Due to the nature of telemedicine, the ability to do physical assessment was limited to what can be accomplished by patient directed telehealth visit based on instruction. Those limits are understood by the patient and myself. Impression is based on history, available information, and physical findings accomplished with telehealth visit. Chronic disease/problem list/ medication list reviewed and updated where indicated. Discussed diagnosis, plan including risks, benefits, and options of treatment. Advised to call for new, worsening, or persistent symptoms. Level of patient risk was of moderate complexity due to the documented nature of presentation, the information assessment required and the nature of the development of an evaluation and treatment plan as documented. PMH, FHx, SHx, Surgical Hx, Quality management review carried out and addressed as documented today as part of this visit. Medication list was reviewed and adjusted as indicated. Medication requiring a refill was addressed. Risk and benefits of any new medications were discussed and all questions were answered. Plan Of Treatment Pending Test Test Name Order Date *CT ABDOMEN W/O CONTRAST [id number] MRI : Abdomen with and without Contrast 11/01/2024 Echocardiogram 12/14/2023 colonoscopy-screening 12/14/2023 Insurance Providers Payer Name Payer Address Payer Phone Subscriber Number Group Number Insured Name Patient Relationship to Insured Coverage Start Date Coverage End Date [facility] [address] [place] [address] [id number] Nathan Self - patient is the insured Medical (General) History Medical History History ICD Code Essential (primary) hypertension I10 Hyperlipidemia, unspecified E78.5 Type 2 diabetes mellitus with hyperglyce lila E11.65 Surgical History 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
--- OUTSIDE RECORDS SUMMARY | 2025-05-25 11:04 | XMS_ITS | Clinical Summary ---
Author Organization [facility] Address [address] [place] [address] Care Team Providers Care Hand Tube Bender Name Role Phone Sin Rosa MD Primary [...] 09/15/2021 Assessment & Plan (09/17/2021 12:33 PM SETTER OUT): - 09/14 ongoing symptom from ICU transfer, KUB ordered, oral bowel reg and dulcolax suppository ordered - 09/15 persistent intermittent indigestion and nausea, tums, ekg and trop ordered, +BM x2 - 09/16 indigestion resolved, intermittent nausea suspect r/t narcotics - 09/17 resolved, tolerating diet COVID-19 09/14/2021 Assessment & Plan (09/18/2021 12:33 PM SETTER OUT): - positive on 08/12 with at-home test, currently asymptomatic but considered positive here - 09/11 +covid swab inpatient - 09/17 remains asymptomatic --- complete isolation as recommended by the CDC, f/u with PCP Sebaceous cyst 09/14/2021 Assessment & Plan (09/18/2021 12:30 PM SETTER OUT): 09/12 OR: excision of left chest wall cyst 09/15: local wound care - f/u ACES 10d Type 2 diabetes mellitus 09/14/2021 Assessment & Plan (09/18/2021 12:33 PM SETTER OUT): - A1c 09/12: 7.8 - 09/14 BG 184-219 - lantus + SSI - goal BG <180 - 09/15 endo consulted for management - johnson check for GLP1 complete - Endocrine discharge recommendations --- metformin 1000mg BID --- glipizide 5mg daily --- ozempic 0.25mg sq weekly --- f/u with established materials planner 2w --- diabetes education provided to patient by RN and NOTCHER prior to discharge, patient reports feeling comfortable managing Ozempic administration Septic shock 09/14/2021 Assessment & Plan (09/14/2021 11:47 AM SETTER OUT): - 09/12 perioperative hypotension, neosynephrine --- weaned, resolved HTN (hypertension) 09/14/2021 Assessment & Plan (09/17/2021 12:33 PM SETTER OUT): Home med: norvasc, lisinopril --- held inpatient, resume as appropriate - 09/15 resumed - 09/17 HDS Anxiety and depression 09/14/2021 Assessment & Plan (09/15/2021 10:36 AM SETTER OUT): Home med: zoloft --- continued - 09/15: 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 Overview (09/11/2021): Added automatically from request for surgery [id number] Assessment & Plan (09/18/2021 12:37 PM SETTER OUT): - OR 09/12: R groin (undescended testes), [...] sickness Childhood asthma Type 2 diabetes mellitus Family History Medical History Relation Name Comments [...] on file Legal Sex Male 2:01 PM SETTER OUT Gender Identity Not on file Sexual Orientation [...] (259 lb 12.8 oz) 2021 12:56 PM SETTER OUT Height 180.3 cm (5' 11) 09/28/2021 12: 56 PM SETTER OUT Body Mass Index 36.23 09/28/2021 12:56 PM SETTER OUT Plan of Treatment Health Maintenance Due Date [...] 09/06, 09/15/2021, Additional history exists Covid-19 Vaccine ( - 2024-2 6 season) 2025 05/21/2021, 10/28/2020, 10/07/2020 Influenza Vaccine (#1) 2025 06/18/2017 DTaP/Tdap/Td Vaccine (2 - Td or Tdap) 07/15/2031 07/15/2021 Procedures Procedure Name Priority Date/Time Associated Diagnosis Comments EGFR Routine 09/17/2021 10:11 PM SETTER OUT HEMOGLOBIN A1C Timed 09/12/2021 2:39 AM SETTER OUT LIPID PANEL Timed 09/12/2021 2:39 AM SETTER OUT from Last 3 Months or Most Recently Relevant to Health Maintenance Results * eGFR (09/17/2021 10:11 PM SETTER OUT) eGFR >90 90 - 130 mL/min/1. 73 [...] reviewed 2021. Blood 09/17/2021 10:1 1 PM SETTER OUT 09/17/2021 10:47 PM SETTER OUT To Whitt DO LAB BLOOD ORDERABLES Fi nal Result Performing Organization Address [facility] de Phone Number [facility] Department [place] [address] * (ABNORMAL) Hemoglobin A1c (09/12/2021 2:39 AM SETTER OUT) Hgb A1C 7.8(H) 4.0 - 5.6 % [facility] Estimated Average Glucose 177 mg/dL [facility] Comment: The ADA recommends reporting an estimated Average Glucose (eAG) with all Hemoglobin A1c results using the equation derived from a study of 507 normal and diabetic adults. Minority populations were underrepresented and children were not included. (Diabetes Care 2020; 43(S1): S66-S76). The eAG is not equivalent to a fasting glucose. Blood 09/12/2021 2:39 AM SETTER OUT 09/12/2021 3:02 AM SETTER OUT us Jessica Davidson MD LAB BLOOD ORDERABLES Final Resul t Performing Organization Address City/[facility]/ZIP Co de Phone Number [facility] Department [place] [address] * (ABNORMAL) Lipid panel (09/12/2021 2:39 AM SETTER OUT) Cholesterol 103 30 - 199 mg/dL [facility] [...] on 2018. Triglycerides 72 <=149 mg/dL [facility] Comment: Hemolyzed; result [...] revised on 2018. HDL 33(L) >=40 mg/dL [facility] Comment: [...] on 2018. LDL, calculated 56 <=129 mg/dL [facility] Comment: Interpretive Data Ages < or [...] revised on 2018. Non-HDL Cholesterol 70 mg/dL [facility] Comment: Interpretive Data Ages < or [...] last revised on 2018. Chol/HDL ratio 3 [facility] Blood 09/12/2021 2:39 AM SETTER OUT 09/12/2021 2:59 AM SETTER OUT us Jessica Davidson MD LAB BLOOD ORDERABLES Final Resul t [facility] [place] [address] from Last 3 Months or Most Recently Relevant to Health Maintenance Insurance [place] Advance Directives For more information, please contact: [phone] * Full Code (Latest Code Status on File) Date Activated Date Inactivated Comments 09/12/2021 1:52 AM 09/18/2021 6:52 PM Care Teams Hand Tube Bender Relationship Specialty Start Date End Date Sin Rosa MD PCP - General 06/18/17
--- OUTSIDE RECORDS SUMMARY | 2025-05-25 11:05 | XMS_ITS | Encounter Summary ---
Author Organization [facility] Healthcare Address [address] [place] [address] Care Team Providers Care Harvest Worker Field Crop Name Role Phone Sin Rosa MD Primary Care Provider + Encounter Details Date Type Department Care Team (Late st Contact Info) Description 09/17/2021 Documentation [facility] Case Management [address] [place] [address] Deana Dooley RN Social History Tobacco Use Types Packs/Day Years Used Date Smoking Tobacco: Never Smokeless Tobacco: Never Alcohol Use Standard Drinks/Week Comments Yes 0 (1 standard drink = 0.6 oz pur e alcohol) Sex and Gender Information Value Date Recorded Sex Assigned at Not on file Legal Sex Male 2:01 PM BANK VAULT CLERK Gender Identity Not on file Sexual Orientation [...] longer needed. 09/11/2021 09/11/2021 09/19/2021 12:23 PM BANK VAULT CLERK COVID: Recovered 09/19/2021 09/19/2021 01/17/2022 3:05 AM CDT documented as of this encounter Care Teams Harvest Worker Field Crop Relationship Specialty Start Date End Date Sin Rosa MD PCP - General 06/18/17 documented as of this encounter
== END 2025-05-25 09:40 | disposition home or self-care (01) ==
PROVIDERS: PCP Internal Medicine Endocrinology, Diabetes & Metabolism; Visit Provider Urology
DX: N28.89 Other specified disorders of kidney and ureter (principal)
CPT/HCPCS: 74183; A9577